=== PATIENT | female | born 1940 | race Caucasian/White ===

== ENCOUNTER 2017-04-13 18:15 | Emergency (ER) | payer MEDICARE, BC ==
[2017-04-13 18:53] VITALS: BP 139/44
[2017-04-13] MEDS ORDERED: Doxycycline 100 MG Cap ONE (19:00)
--- NOTE | 2017-04-13 20:11 | EDM.PDOC ---
ED HPI GENERAL MEDICAL PROBLEM - General Chief Complaint: Bite:Animal, Insect Stated Complaint: tick bite Time Seen by Provider: 04/13/17 18:45 Source of Information: Reports: Patient History Limitations: Reports: No Limitations - History of Present Illness INITIAL COMMENTS - FREE TEXT/NARRATIVE: According to patient she had a tick bite on friday ( 2 day ago), Rash is over the right posterior thigh.She has noticed some pain and rash around it. She claims the tick wa ,s large one. No fever or chills. No joint pain or swelling. She has been itching over the rash. Came in as the rash has spread. No other complaints. Onset Date: 04/11/17 Severity: Mild Associated Symptoms: Reports: Rash. Denies: Confusion, Chest Pain, Cough, Fever /Chills, Headaches, Nausea/Vomiting, Seizure, Shortness of Breath, Syncope, Weakness - Related Data Allergies Allergy/AdvReac Type Severity Reaction Status Date / Time No Known Allergies Allergy Verified 04/13/17 18:53 Home Meds: Home Meds Simvastatin 1 tab PO DAILY 11/09/13 [History] Aspirin [Halfprin] 1 tab PO DAILY 05/21/15 [History] Losartan/Hydrochlorothiazide [Losartan-HCTZ 100-25 MG] 1 tab PO DAILY 05/21/15 [ History] Liraglutide [Victoza] 1.8 mg SUBCUT DAILY 04/13/17 [History] Past Medical History HEENT History: Reports: Impaired Vision, Other (See Below) Other HEENT History: astigmatism Cardiovascular History: Reports: Heart Murmur, Hypertension [employer]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: Musculoskeletal History: Reports: Arthritis Endocrine/Metabolic History: Reports: Diabetes, Type II, Hyperparathyroidism - Past Surgical History HEENT Surgical History: Reports: Oral Surgery Female Surgical History: Reports: Hysterectomy, Salpingo-Oophorectomy Social & Family History - Tobacco Use Smoking Status *Q: Never Smoker Years of Tobacco use: 10 Used Tobacco, but Quit: Yes Month Tobacco Last Used: 2000 Second Hand Smoke Exposure: No - Alcohol Use Days Per Week of Alcohol Use: 0 - Recreational Drug Use Recreational Drug Use: No ED ROS GENERAL - Review of Systems Review Of Systems: See Below Constitutional: Denies: Fever, Chills HEENT: Denies: Rhinitis, Sinus Problem, Throat Pain, Throat Swelling Respiratory: Denies: Shortness of Breath, Wheezing, Cough, Sputum Cardiovascular: Denies: Chest Pain, Lightheadedness GI/Abdominal: Denies: Abdominal Pain, Flatus, Nausea, Vomiting : Denies: Dysuria, Urgency, Urinary Retention Musculoskeletal: Denies: Neck Pain, Shoulder Pain, Joint Pain, Joint Swelling Skin: Reports: Pruritis, Rash. Denies: Jaundice, Mottled, Bruising Neurological: Denies: Confusion, Dizziness, Headache, Numbness, Tingling, Difficulty Walking, Weakness ED EXAM, ANIMAL BITE - Physical Exam Exam: See Below Exam Limited By: No Limitations General Appearance: Alert, WD/WN, No Apparent Distress Eye Exam: Bilateral Eye: EOMI, PERRL Ears: Normal External Exam, Normal Canal, Hearing Grossly Normal, Normal TMs Nose: Normal Inspection, Normal Mucosa, No Blood Throat/Mouth: Normal Inspection, Normal Lips, Normal Teeth, Normal Gums, Normal Oropharynx, Normal Voice, No Airway Compromise Head: Atraumatic, Normocephalic Neck: Normal Inspection, Supple, Non-Tender, Full Range of Motion Respiratory/Chest: No Respiratory Distress, Lungs Clear, Normal Breath Sounds, No Accessory Muscle Use, Chest Non-Tender Cardiovascular: Normal Peripheral Pulses, Regular Rate, Rhythm, No Edema, No Gallop, No JVD, No Murmur, No Rub Extremities: Normal Inspection, Normal Range of Motion, Non-Tender, No Pedal Edema, Normal Capillary Refill, Other (Right thigh: There is a pinkish red rash over the posterior aspect of the thigh. Approximately 10 by cm sms. the margins are irregular. there is a central drk purple gemma with a spreading bright red margin around it with normal clearing of the skin. Appears like Bull's eye.) Neurological: Alert, Oriented, CN II-XII Intact, Normal Cognition, Normal Gait, Normal Reflexes, No Motor/Sensory Deficits Course - Vital Signs Text/Narrative:: Pt does have a typical bull's eye pattern of rash following a tick bite. It happened 2 days. ago. As the rash has typical Bull's eye pattern, I have started patient on doxycycline 100mg twice daily for 10 day empirically. Advised yogurt daily. Followup in clinic if rash worsens. Okay to take benadryl 25mg TID for itching. Last Recorded V/S: Last Vital Signs Temp 99.1 F 07/09/17 18:47 Pulse 64 04/13/17 18:47 Resp BP 139/44 L 04/13/17 18:47 Pulse Ox 99 04/13/17 18:47 Departure - Departure Time of Disposition: 19:15 Disposition: Home, Self-Care 01 Condition: Fair Clinical Impression: Tick bite - Discharge Information Instructions: Cellulitis, Adult, Doxycycline tablets or capsules Forms: ED Department Discharge Additional Instructions: Take the antibiotic twice a day with food. You may also take Benadryl 25mg three times day as well for the itching. Activa is good to take with an antibiotic as well. - Problem List & Annotations (1) Tick bite SNOMED Code(s): 35761522 Code(s): W57.XXXA - BIT/STUNG BY NONVENOM INSECT & OTH NONVENOM ARTHROPODS, INIT Status: Acute - Problem List Review Problem List Initiated/Reviewed/Updated: Yes - Assessment/Plan Assessment:: Tick bite over right thigh with Bull's eye patern Plan: Pt does have a typical bull's eye pattern of rash following a tick bite. It happened 2 days. ago. As the rash has typical Bull's eye pattern, I have started patient on doxycycline 100mg twice daily for 10 day empirically. Advised yogurt daily. Followup in clinic if rash worsens. Okay to take benadryl 25mg TID for itching.
== END 2017-04-13 19:32 | disposition home or self-care (01) ==
LOC: LB.ED 18:15
DX: S70.361A Insect bite (nonvenomous), right thigh, initial encounter (principal); Z79.82 Long term (current) use of aspirin; W57.XXXA Bitten or stung by nonvenomous insect and other nonvenomous arthropods, initial encounter
CPT/HCPCS: 99282; A9270; 99283

== ENCOUNTER 2017-04-30 14:45 | Inpatient (IN) | payer MEDICARE, BC ==
[2017-04-30] MEDS ORDERED: Dextrose 5%-0.9% NaCl 1,000 ML IV SCH (15:30)
[2017-04-30] MEDS ORDERED: Acetaminophen 500 MG Tab PO ONE (16:07)
[2017-04-30] MEDS ORDERED: Piperacillin/Tazobactam 4.5 GM in Sodium Chloride 0.9% 100 ML IV SCH (16:15)
[2017-04-30] MEDS ORDERED: Acetaminophen 325 MG Tab ONE (16:23)
[2017-04-30] MEDS ORDERED: Sodium Chloride 0.9% 10 ML Syringe FLUSH PRN (16:54)
[2017-04-30] MEDS ORDERED: Zolpidem 5 MG Tab PO PRN (16:54)
[2017-04-30] MEDS ORDERED: Ondansetron 4 MG/2 ML SDV IV PRN (16:54)
[2017-04-30] MEDS ORDERED: Acetaminophen 325 MG Tab PO PRN (16:54)
[2017-04-30] MEDS ORDERED: Ibuprofen 400 MG Tab PO PRN (16:54)
[2017-04-30] MEDS ORDERED: Docusate Sodium 100 MG Cap PO PRN (16:54)
[2017-04-30] MEDS: Dextrose 5%-0.9% NaCl with KCl 1,000 ML IV SCH (16:57)
--- NOTE | 2017-04-30 17:08 | EDM.PDOC ---
ED HPI GENERAL MEDICAL PROBLEM - General Chief Complaint: Fever Stated Complaint: fever,uti Time Seen by Provider: 04/30/17 15:03 Source of Information: Reports: Patient, Family History Limitations: Reports: Altered Mental Status - History of Present Illness INITIAL COMMENTS - FREE TEXT/NARRATIVE: This is a 76yo F here for confusion, elevated fever up to 103+, recent diagnosis of UTI yesterday, balance concerns, and slow verbal responses. Patient states she doesn't feel well. Onset: Gradual Duration: Day(s):, Getting Worse Location: Reports: Generalized Severity: Moderate Improves with: Reports: None Worsens with: Reports: None Associated Symptoms: Reports: Fever/Chills, Malaise, Weakness - Related Data Allergies Allergy/AdvReac Type Severity Reaction Status Date / Time No Known Allergies Allergy Verified 04/13/17 18:53 Home Meds: Home Meds Simvastatin 1 tab PO DAILY 11/09/13 [History] Aspirin [Halfprin] 1 tab PO DAILY 05/21/15 [History] Losartan/Hydrochlorothiazide [Losartan-HCTZ 100-25 MG] 25 - 100 mg PO DAILY [History] Liraglutide [Victoza] 1.8 mg SUBCUT DAILY 04/13/17 [History] Sulfamethoxazole/Trimethoprim [Sulfamethoxazole-Tmp Ds Tablet] 1 tab PO BID [History] Past Medical History HEENT History: Reports: Impaired Vision, Other (See Below) Other HEENT History: astigmatism Cardiovascular History: Reports: Heart Murmur, Hypertension Respiratory History: Reports: Other (See Below) Other Respiratory History: Cough x 2 wks, slightly productive, clear Gastrointestinal History: Reports: Diverticulosis, Other (See Below) Other Gastrointestinal History: sometimes incontinence when diarrhea or loose Genitourinary History: Reports: Urinary Incontinence, Other (See Below) Other Genitourinary History: presently with UTI [employer] History: Reports: Musculoskeletal History: Reports: Arthritis Endocrine/Metabolic History: Reports: Diabetes, Type II, Hypothyroidism Other Endocrine/Metabolic History: Hx hyperthyroidism but treated with iodine and now hypo Immunologic History: Reports: None Dermatologic History: Reports: Other (See Below) Other Dermatologic History: 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 - Infectious Disease History Infectious Disease History: Reports: C-Difficile, Measles - Past Surgical History HEENT Surgical History: Reports: Oral Surgery GI Surgical History: Reports: Cholecystectomy, Colonoscopy Female Surgical History: Reports: Hysterectomy, Salpingo-Oophorectomy Social & Family History - Family History Family Medical History: Noncontributory - Tobacco Use Smoking Status *Q: Never Smoker Years of Tobacco use: 10 Used Tobacco, but Quit: Yes Month Tobacco Last Used: 2000 Second Hand Smoke Exposure: No - Caffeine Use Caffeine Use: Reports: Coffee, Tea - Alcohol Use Days Per Week of Alcohol Use: 0 - Recreational Drug Use Recreational Drug Use: No ED ROS GENERAL - Review of Systems Review Of Systems: ROS reveals no pertinent complaints other than HPI. ED EXAM, SEPSIS - Physical Exam Exam: See Below Exam Limited By: No Limitations General Appearance: Alert, WD/WN, Moderate Distress Eye Exam: Bilateral Eye: EOMI, PERRL Ears: Normal External Exam Nose: Normal Inspection Throat/Mouth: Normal Inspection Head: Atraumatic, Normocephalic Neck: Normal Inspection Respiratory/Chest: No Respiratory Distress, Lungs Clear, Normal Breath Sounds Cardiovascular: Normal Peripheral Pulses, Regular Rate, Rhythm, No Edema Peripheral Pulses: 2+: Dorsalis Pedis (L), Dorsalis Pedis (R) GI/Abdominal Exam: Normal Bowel Sounds Back: Normal Inspection Extremities: Normal Inspection Neurological: Alert, Oriented, Slow to Respond Psychiatric: Normal Affect, Normal Mood Skin: Warm, Dry, Intact Course - Vital Signs Last Recorded V/S: Last Vital Signs Temp 39.0 C H 04/30/17 17:08 Pulse 98 04/30/17 15:05 Resp 32 H 04/30/17 15:05 BP 125/54 L 04/30/17 16:05 Pulse Ox 95 04/30/17 15:05 - Orders/Labs/Meds Orders: Active Orders 24 hr Category Date Time Status Patient Status [ADT] Routine ADT 04/30/17 16:54 Ordered Ambulate [RC] PER UNIT ROUTINE Care 04/30/17 16:56 Ordered Cardiac Monitoring [RC] CONTINUOUS Care 04/30/17 16:56 Ordered EKG Documentation Completion [RC] ASDIRECTED Care 04/30/17 15:15 Active Oxygen Therapy [RC] PRN Care 04/30/17 16:54 Ordered Up With Assistance [RC] ASDIRECTED Care 04/30/17 16:54 Ordered VTE/DVT Education [RC] Per Unit Routine Care 04/30/17 16:54 Ordered Vital Signs [RC] Q4H Care 04/30/17 16:54 Ordered Regular Diet [DIET] Diet 04/30/17 Dinner Ordered Chest 1V Frontal [CR] Stat Exams 04/30/17 15:32 Taken BASIC METABOLIC PANEL,BMP [CHEM] AM Lab 05/01/17 05:11 Ordered CBC WITH AUTO DIFF [HEME] AM Lab 05/01/17 05:11 Ordered CULTURE BLOOD [BC] Stat Lab 04/30/17 15:29 Ordered CULTURE BLOOD [BC] Stat Lab 04/30/17 15:40 Received MAGNESIUM [CHEM] AM Lab 05/01/17 05:11 Ordered Acetaminophen [Tylenol] Med 04/30/17 16:54 Ordered 650 mg PO Q4H PRN Dextrose 5%-0.9% NaCl [Dextrose 5%-Normal Saline] 1,000 Med 04/30/17 15:30 Active ml IV ASDIRECTED Dextrose 5%-Normal Saline with KCl 20 mEq @ 150 mL/Hr ( Med 04/30/17 16:45 Ordered 1000 mL) Dextrose 5%-0.9% NaCl with KCl [D5 NS with 20 mEq KCl] 1,000 ml IV ASDIRECTED Docusate Sodium [Colace] Med 04/30/17 16:54 Ordered 100 mg PO BID PRN Ibuprofen [Motrin] Med 04/30/17 16:54 Ordered 400 mg PO Q6H PRN Ondansetron [Zofran] Med 04/30/17 16:54 Ordered 4 mg IV Q4H PRN Piperacillin/Tazobactam [Zosyn] 4.5 gm Med 04/30/17 16:15 Ordered Sodium Chloride 0.9% [Normal Saline] 100 ml IV Q6H Sodium Chloride 0.9% [Saline Flush] Med 04/30/17 16:54 Ordered 10 ml FLUSH ASDIRECTED PRN Zolpidem [Ambien] Med 04/30/17 16:54 Ordered 5 mg PO BEDTIME PRN Antiembolic Hose [OM.PC] Per Unit Routine Oth 04/30/17 16:56 Ordered Peripheral IV Insertion Adult [OM.PC] Routine Oth 04/30/17 16:54 Ordered Resuscitation Status Routine Resus Stat 04/30/17 16:54 Ordered Medication Orders Acetaminophen (Tylenol) 650 mg PO Q4H PRN PRN Reason: Pain (Mild 1-3)/fever Docusate Sodium (Colace) 100 mg PO BID PRN PRN Reason: Constipation Piperacillin Sod/Tazobactam (Sod 4.5 gm/ Sodium Chloride) 100 mls @ 200 mls/hr IV Q6H [facility] Last Admin: 04/30/17 16:30 Dose: 200 mls/hr Potassium Chloride/Dextrose/Sod Cl (D5 Ns With 20 Meq Kcl) 1,000 mls @ 150 mls/ hr IV ASDIRECTED [facility] Last Admin: 04/30/17 16:57 Dose: 150 mls/hr Dextrose/Sodium Chloride (Dextrose 5%-Normal Saline) 1,000 mls @ 150 mls/hr IV ASDIRECTED [facility] Last Admin: 04/30/17 15:30 Dose: 150 mls/hr Ibuprofen (Motrin) 400 mg PO Q6H PRN PRN Reason: Pain (mild 1-3) Ondansetron HCl (Zofran) 4 mg IV Q4H PRN PRN Reason: Nausea/Vomiting Sodium Chloride (Saline Flush) 10 ml FLUSH ASDIRECTED PRN PRN Reason: Keep Vein Open Zolpidem Tartrate (Ambien) 5 mg PO BEDTIME PRN PRN Reason: Sleep Labs: Laboratory Tests 04/30/17 04/30/17 04/30/17 Range/Units 15:40 15:40 15:40 WBC 13.0 H (4.0-11.0) K/uL RBC 4.69 (3.80-5.80) M/uL Hgb 13.8 (11.5-16.5) g/dL Hct 40.4 (37.0-47.0) % MCV 86 (76-96) fL MCH 29.4 (27.0-32.0) pg MCHC 34.2 (31.0-35.0) g/dL RDW 13.5 (11.0-16.0) % Plt Count 237 (150-500) K/uL MPV 10.0 (6.0-10.0) fL Neut % (Auto) 93.4 H (45.0-70.0) % Lymph % (Auto) 2.6 L (20.0-40.0) % [place] % (Auto) 3.8 (3.0-10.0) % Eos % (Auto) 0.0 L (1.0-5.0) % Baso % (Auto) 0.2 (0.0-0.5) % Neut # (Auto) 12.10 H (2.00-7.50) K/uL Lymph # (Auto) 0.34 L (1.50-4.00) K/uL [place] # (Auto) 0.49 (0.20-0.80) K/uL Eos # (Auto) 0.00 L (0.04-0.40) K/uL Baso # (Auto) 0.02 (0.02-0.10) K/uL VBG pH (7.31-7.41) Sodium 137 (136-145) mmol/L Potassium 3.1 L D (3.5-5.1) mmol/L Chloride 97 L (98-107) mmol/L Carbon Dioxide 25.8 (21.0-32.0) mmol/L Anion Gap 17.3 H (5.0-15.0) mmol/L BUN 19 (8-26) mg/dL Creatinine 1.38 H D (0.55-1.02) mg/dL Est Cr Clr Drug Dosing TNP Estimated GFR (MDRD) 37 L (>60) MLS/MIN BUN/Creatinine Ratio 13.8 (6-25) Glucose 222 H (74-100) mg/dL Lactic Acid (0.90-1.70) mmol/L Calcium 9.1 (8.5-10.1) mg/dL Total Bilirubin 0.6 D (0.0-1.0) mg/dL AST 20 (15-37) U/L ALT 26 (12-78) U/L Alkaline Phosphatase 86 (46-116) U/L Troponin I < 0.017 D (0.000-0.060) ng/mL Total Protein 8.0 (6.4-8.2) g/dL Albumin 3.6 (3.4-5.0) g/dL Globulin 4.4 H (2.2-4.2) g/dL Albumin/Globulin Ratio 0.8 (0.8-2.0) TSH, Ultra Sensitive 1.279 D (0.358-3.740) uIU/mL 04/30/17 04/30/17 Range/Units 15:40 15:40 WBC (4.0-11.0) K/uL RBC (3.80-5.80) M/uL Hgb (11.5-16.5) g/dL Hct (37.0-47.0) % MCV (76-96) fL MCH (27.0-32.0) pg MCHC (31.0-35.0) g/dL RDW (11.0-16.0) % Plt Count (150-500) K/uL MPV (6.0-10.0) fL Neut % (Auto) (45.0-70.0) % Lymph % (Auto) (20.0-40.0) % [place] % (Auto) (3.0-10.0) % Eos % (Auto) (1.0-5.0) % Baso % (Auto) (0.0-0.5) % Neut # (Auto) (2.00-7.50) K/uL Lymph # (Auto) (1.50-4.00) K/uL [place] # (Auto) (0.20-0.80) K/uL Eos # (Auto) (0.04-0.40) K/uL Baso # (Auto) (0.02-0.10) K/uL VBG pH 7.41 (7.31-7.41) Sodium (136-145) mmol/L Potassium (3.5-5.1) mmol/L Chloride (98-107) mmol/L Carbon Dioxide (21.0-32.0) mmol/L Anion Gap (5.0-15.0) mmol/L BUN (8-26) mg/dL Creatinine (0.55-1.02) mg/dL Est Cr Clr Drug Dosing Estimated GFR (MDRD) (>60) MLS/MIN BUN/Creatinine Ratio (6-25) Glucose (74-100) mg/dL Lactic Acid 3.79 H (0.90-1.70) mmol/L Calcium (8.5-10.1) mg/dL Total Bilirubin (0.0-1.0) mg/dL AST (15-37) U/L ALT (12-78) U/L Alkaline Phosphatase (46-116) U/L Troponin I (0.000-0.060) ng/mL Total Protein (6.4-8.2) g/dL Albumin (3.4-5.0) g/dL Globulin (2.2-4.2) g/dL Albumin/Globulin Ratio (0.8-2.0) TSH, Ultra Sensitive (0.358-3.740) uIU/mL Meds: Medications Generic Name Dose Route Start Last Admin Trade Name Freq PRN Reason Stop Dose Admin Acetaminophen 650 mg 04/30/17 16:54 Tylenol PO Q4H PRN Pain (Mild 1-3)/fever Docusate Sodium 100 mg 04/30/17 16:54 Colace PO BID PRN Constipation Piperacillin Sod/Tazobactam 100 mls @ 200 mls/hr 04/30/17 16:15 04/30/17 16: 30 Sod 4.5 gm/ Sodium Chloride IV 200 mls/hr Q6H JOSE Administration Potassium Chloride/Dextrose/Sod Cl 1,000 mls @ 150 mls/hr 04/30/17 16:45 16:57 D5 Ns With 20 Meq Kcl IV 150 mls/hr ASDIRECTED JOSE Administration Dextrose/Sodium Chloride 1,000 mls @ 150 mls/hr 04/30/17 15:30 04/30/17 15:30 Dextrose 5%-Normal Saline IV 150 mls/hr ASDIRECTED JOSE Administration Ibuprofen 400 mg 04/30/17 16:54 Motrin PO Q6H PRN Pain (mild 1-3) Ondansetron HCl 4 mg 04/30/17 16:54 Zofran IV Q4H PRN Nausea/Vomiting Sodium Chloride 10 ml 04/30/17 16:54 Saline Flush FLUSH ASDIRECTED PRN Keep Vein Open Zolpidem Tartrate 5 mg 04/30/17 16:54 Ambien PO BEDTIME PRN Sleep Discontinued Medications Generic Name Dose Route Start Last Admin Trade Name Freq PRN Reason Stop Dose Admin Acetaminophen 1,000 mg 04/30/17 16:07 04/30/17 16:20 Tylenol Extra Strength PO 04/30/17 16:08 1,000 mg ONETIME ONE Administration Acetaminophen Confirm 04/30/17 16:23 04/30/17 16:23 Tylenol Administered 04/30/17 16:24 Not Given Dose 975 mg .ROUTE .STK-MED ONE Departure - Departure Time of Disposition: 17:06 Disposition: Admitted As Inpatient 64 Clinical Impression: Sepsis secondary to UTI, Confusion and disorientation, Renal dysfunction, Hypokalemia, Lactic acid increased Fever Qualifiers: Fever type: unspecified Qualified Code(s): R50.9 - Fever, unspecified - Discharge Information - Problem List Review Problem List Initiated/Reviewed/Updated: Yes - My Orders Last 24 Hours: My Active Orders 04/30/17 15:15 EKG Documentation Completion [RC] ASDIRECTED 04/30/17 15:29 CULTURE BLOOD [BC] Stat 04/30/17 15:30 Dextrose 5%-0.9% NaCl [Dextrose 5%-Normal Saline] 1,000 ml IV ASDIRECTED 04/30/17 15:32 Chest 1V Frontal [CR] Stat 04/30/17 15:40 CULTURE BLOOD [BC] Stat 04/30/17 16:15 Piperacillin/Tazobactam [Zosyn] 4.5 gm Sodium Chloride 0.9% [Normal Saline] 100 ml IV Q6H 04/30/17 16:45 Dextrose 5%-Normal Saline with KCl 20 mEq @ 150 mL/Hr (1000 mL) Dextrose 5%-0.9 % NaCl with KCl [D5 NS with 20 mEq KCl] 1,000 ml IV ASDIRECTED 04/30/17 16:54 Patient Status [ADT] Routine Oxygen Therapy [RC] PRN Up With Assistance [RC] ASDIRECTED VTE/DVT Education [RC] Per Unit Routine Vital Signs [RC] Q4H Acetaminophen [Tylenol] 650 mg PO Q4H PRN Docusate Sodium [Colace] 100 mg PO BID PRN Ibuprofen [Motrin] 400 mg PO Q6H PRN Ondansetron [Zofran] 4 mg IV Q4H PRN Sodium Chloride 0.9% [Saline Flush] 10 ml FLUSH ASDIRECTED PRN Zolpidem [Ambien] 5 mg PO BEDTIME PRN Peripheral IV Insertion Adult [OM.PC] Routine Resuscitation Status Routine 04/30/17 16:56 Ambulate [RC] PER UNIT ROUTINE Cardiac Monitoring [RC] CONTINUOUS Antiembolic Hose [OM.PC] Per Unit Routine 04/30/17 Dinner Regular Diet [DIET] 05/01/17 05:11 BASIC METABOLIC PANEL,BMP [CHEM] AM CBC WITH AUTO DIFF [HEME] AM MAGNESIUM [CHEM] AM - Assessment/Plan Last 24 Hours: My Active Orders 04/30/17 15:15 EKG Documentation Completion [RC] ASDIRECTED 04/30/17 15:29 CULTURE BLOOD [BC] Stat 04/30/17 15:30 Dextrose 5%-0.9% NaCl [Dextrose 5%-Normal Saline] 1,000 ml IV ASDIRECTED 04/30/17 15:32 Chest 1V Frontal [CR] Stat 04/30/17 15:40 CULTURE BLOOD [BC] Stat 04/30/17 16:15 Piperacillin/Tazobactam [Zosyn] 4.5 gm Sodium Chloride 0.9% [Normal Saline] 100 ml IV Q6H 04/30/17 16:45 Dextrose 5%-Normal Saline with KCl 20 mEq @ 150 mL/Hr (1000 mL) Dextrose 5%-0.9 % NaCl with KCl [D5 NS with 20 mEq KCl] 1,000 ml IV ASDIRECTED 04/30/17 16:54 Patient Status [ADT] Routine Oxygen Therapy [RC] PRN Up With Assistance [RC] ASDIRECTED VTE/DVT Education [RC] Per Unit Routine Vital Signs [RC] Q4H Acetaminophen [Tylenol] 650 mg PO Q4H PRN Docusate Sodium [Colace] 100 mg PO BID PRN Ibuprofen [Motrin] 400 mg PO Q6H PRN Ondansetron [Zofran] 4 mg IV Q4H PRN Sodium Chloride 0.9% [Saline Flush] 10 ml FLUSH ASDIRECTED PRN Zolpidem [Ambien] 5 mg PO BEDTIME PRN Peripheral IV Insertion Adult [OM.PC] Routine Resuscitation Status Routine 04/30/17 16:56 Ambulate [RC] PER UNIT ROUTINE Cardiac Monitoring [RC] CONTINUOUS Antiembolic Hose [OM.PC] Per Unit Routine 04/30/17 Dinner Regular Diet [DIET] 05/01/17 05:11 BASIC METABOLIC PANEL,BMP [CHEM] AM CBC WITH AUTO DIFF [HEME] AM MAGNESIUM [CHEM] AM Plan: Patient counseled on admission for antibiotics and fluid hydration. Discussed labs in the AM and continued supportive care. We will monitor sepsis until resolution.
--- NOTE | 2017-04-30 19:39 | CR ---
DATE OF SERVICE: 04/30/17 CLINICAL DATA: Cough AP CHEST: Comparison is made to a prior exam dated 05/18/15. The heart size is normal. The aorta is ectatic. There is eventration of the right hemidiaphragm. The lungs are clear. No pneumothorax. No pleural effusions. No significant changes from the prior exam. IMPRESSION: No evidence of acute intrathoracic disease. [id number] [facility]
[2017-04-30] MEDS: Simvastatin 20 MG Tab PO SCH (19:56)
[2017-04-30] MEDS: Piperacillin/Tazobactam 4.5 GM in Sodium Chloride 0.9% 100 ML IV SCH (22:19)
[2017-05-01] MEDS: Dextrose 5%-0.9% NaCl with KCl 1,000 ML IV SCH ×3 (00:09→17:27)
[2017-05-01] MEDS ORDERED: Menthol/Zinc Oxide Ointment 113 GM Tube TOP PRN (04:01)
[2017-05-01] MEDS: Piperacillin/Tazobactam 4.5 GM in Sodium Chloride 0.9% 100 ML IV SCH ×3 (04:32→20:49)
[2017-05-01] MEDS ORDERED: Levothyroxine 50 MCG Tab ONE (07:15)
[2017-05-01] MEDS: Levothyroxine 50 MCG Tab PO SCH (07:26)
--- NOTE | 2017-05-01 08:01 | PCM.PN ---
- General Info Date of Service: 05/01/17 Functional Status: Reports: Pain Controlled, Tolerating Diet - Review of Systems General: Reports: Weakness HEENT: Reports: No Symptoms Pulmonary: Reports: No Symptoms Cardiovascular: Reports: No Symptoms Gastrointestinal: Reports: No Symptoms Genitourinary: Reports: No Symptoms Musculoskeletal: Reports: No Symptoms Skin: Reports: No Symptoms Neurological: Reports: No Symptoms Psychiatric: Reports: No Symptoms - Patient Data Vitals - Most Recent: Last Vital Signs Temp 37.7 C 05/01/17 05:00 Pulse 71 05/01/17 05:00 Resp 18 05/01/17 05:00 BP 119/46 L 05/01/17 05:00 Pulse Ox 96 05/01/17 05:00 Weight - Most Recent: 69.003 kg I&O - Last 24 Hours: Intake & Output 04/30/17 05/01/17 05/01/17 22:59 06:59 14:59 Intake Total 360 2350 Output Total 1775 Balance 360 575 Med Orders - Current: Current Medications Acetaminophen (Tylenol) 650 mg PO Q4H PRN PRN Reason: Pain (Mild 1-3)/fever Last Admin: 05/01/17 05:49 Dose: 650 mg Aspirin (Halfprin) 81 mg PO DAILY [facility] Calamine/Phenol (Calmoseptine) 1 gm TOP QID PRN PRN Reason: Wound Care Docusate Sodium (Colace) 100 mg PO BID PRN PRN Reason: Constipation Hydrochlorothiazide (Hydrochlorothiazide) 25 mg PO DAILY [facility] Potassium Chloride/Dextrose/Sod Cl (D5 Ns With 20 Meq Kcl) 1,000 mls @ 150 mls/ hr IV ASDIRECTED [facility] Last Admin: 05/01/17 00:09 Dose: 150 mls/hr Dextrose/Sodium Chloride (Dextrose 5%-Normal Saline) 1,000 mls @ 150 mls/hr IV ASDIRECTED [facility] Last Admin: 04/30/17 15:30 Dose: 150 mls/hr Piperacillin Sod/Tazobactam (Sod 4.5 gm/ Sodium Chloride) 100 mls @ 200 mls/hr IV Q6H [facility] Last Admin: 05/01/17 04:32 Dose: 200 mls/hr Ibuprofen (Motrin) 400 mg PO Q6H PRN PRN Reason: Pain (mild 1-3) Levothyroxine Sodium (Synthroid) 50 mcg PO ACBREAKFAST [facility] Last Admin: 05/01/17 07:26 Dose: 50 mcg Losartan Potassium (Cozaar) 100 mg PO DAILY [facility] Non-Formulary Medication (Liraglutide [Victoza]) 1.8 mg SUBCUT DAILY [facility] Ondansetron HCl (Zofran) 4 mg IV Q4H PRN PRN Reason: Nausea/Vomiting Simvastatin (Zocor) 20 mg PO BEDTIME [facility] Last Admin: 04/30/17 19:56 Dose: 20 mg Sodium Chloride (Saline Flush) 10 ml FLUSH ASDIRECTED PRN PRN Reason: Keep Vein Open Zolpidem Tartrate (Ambien) 5 mg PO BEDTIME PRN PRN Reason: Sleep Discontinued Medications Acetaminophen (Tylenol Extra Strength) 1,000 mg PO ONETIME ONE Stop: 04/30/17 16:08 Last Admin: 04/30/17 16:20 Dose: 1,000 mg Acetaminophen (Tylenol) Confirm Administered Dose 975 mg .ROUTE .STK-MED ONE Stop: 04/30/17 16:24 Last Admin: 04/30/17 16:23 Dose: Not Given Piperacillin Sod/Tazobactam (Sod 4.5 gm/ Sodium Chloride) 100 mls @ 200 mls/hr IV Q6H [facility] Last Admin: 04/30/17 16:30 Dose: 200 mls/hr Levothyroxine Sodium (Synthroid) Confirm Administered Dose 50 mcg .ROUTE .STK- MED ONE Stop: 05/01/17 07:16 Last Admin: 05/01/17 07:19 Dose: Not Given - Exam General: Alert, Oriented, Cooperative HEENT: Pupils Equal, Pupils Reactive, EOMI Neck: Supple Lungs: Clear to Auscultation, Normal Respiratory Effort Cardiovascular: Regular Rate, Regular Rhythm GI/Abdominal Exam: Normal Bowel Sounds, Soft, Non-Tender Extremities: Normal Inspection Peripheral Pulses: 2+: Dorsalis Pedis (L), Dorsalis Pedis (R) Skin: Warm, Dry, Intact Psy/Mental Status: Alert, Normal Affect, Normal Mood - Problem List & Annotations (1) Confusion and disorientation SNOMED Code(s): 30278813, 29820592 Code(s): F99 - MENTAL DISORDER, NOT OTHERWISE SPECIFIED Status: Acute Current Visit: Yes (2) Fever SNOMED Code(s): 876098228 Code(s): R50.9 - FEVER, UNSPECIFIED Status: Acute Current Visit: Yes Qualifiers: Fever type: unspecified Qualified Code(s): R50.9 - Fever, unspecified (3) Hypokalemia SNOMED Code(s): 57792204 Code(s): E87.6 - HYPOKALEMIA Status: Acute Current Visit: Yes (4) Lactic acid increased SNOMED Code(s): 03438792 Code(s): E87.2 - ACIDOSIS Status: Acute Current Visit: Yes (5) Renal dysfunction Status: Acute Current Visit: Yes (6) Sepsis secondary to UTI SNOMED Code(s): 184781063 Code(s): A41.9 - SEPSIS, UNSPECIFIED ORGANISM; N39.0 - URINARY TRACT INFECTION, SITE NOT SPECIFIED Status: Acute Current Visit: Yes (7) Cdiff, Clostridium difficile colitis SNOMED Code(s): 263787769 Code(s): A04.7 - ENTEROCOLITIS DUE TO CLOSTRIDIUM DIFFICILE Status: Acute Priority: Medium Current Visit: No Onset Date: 11/10/13 - Problem List Review Problem List Initiated/Reviewed/Updated: Yes - My Orders Last 24 Hours: My Active Orders 04/30/17 19:01 Cardiac Monitoring [RC] 06,18 04/30/17 19:28 CLOSTRIDIUM DIFFICILE BY PCR [] Routine CULTURE MRSA SURVEY [] Routine 04/30/17 20:00 Simvastatin [Zocor] 20 mg PO BEDTIME 04/30/17 21:01 POC Glucose [Blood Glucose Check, Bedside] [RC] 0804/30/17 22:00 Piperacillin/Tazobactam [Zosyn] 4.5 gm Sodium Chloride 0.9% [Normal Saline] 100 ml IV Q6H 04/30/17 Breakfast Consistent Carbohydrate Diet [DIET] 05/01/17 04:01 Menthol/Zinc Oxide [Calmoseptine] 1 gm TOP QID PRN 05/01/17 07:30 Levothyroxine [Synthroid] 50 mcg PO ACBREAKFAST 05/01/17 08:00 Aspirin [Halfprin] 81 mg PO DAILY Hydrochlorothiazide 25 mg PO DAILY Liraglutide [Victoza] 1.8 mg SUBCUT DAILY Losartan [Cozaar] 100 mg PO DAILY - Plan Plan:: 05/01 800 Pending C. Diff results. Labs pending. We will continue to monitor for sepsis. Resolution in fever and confusion at this time. Continue antibiotics. Start loperamide. F/u labs. Continue fluid hydration.
[2017-05-01] MEDS: Losartan 50 MG Tab PO SCH (09:03)
[2017-05-01] MEDS: Aspirin 81 MG Tab.EC PO SCH (09:05)
[2017-05-01] MEDS: Non-Formulary Medication 1 Each (Liraglutide [Victoza] 1.8 MG) SUBCUT SCH (09:05)
[2017-05-01] MEDS: Hydrochlorothiazide 25 MG Tab PO SCH (09:05)
[2017-05-01] MEDS: Magnesium Oxide 400 MG Tab PO SCH (09:10)
[2017-05-01] MEDS ORDERED: Piperacillin/Tazobactam 4.5 GM in Sodium Chloride 0.9% 100 ML IV SCH (16:00)
[2017-05-01] MEDS: Simvastatin 20 MG Tab PO SCH (20:50)
[2017-05-02] MEDS: Dextrose 5%-0.9% NaCl with KCl 1,000 ML IV SCH (00:21)
[2017-05-02] MEDS: Levothyroxine 50 MCG Tab PO SCH (06:20)
[2017-05-02] MEDS: Aspirin 81 MG Tab.EC PO SCH (08:25)
[2017-05-02] MEDS: Losartan 50 MG Tab PO SCH (08:25)
[2017-05-02] MEDS: Magnesium Oxide 400 MG Tab PO SCH (08:26)
[2017-05-02] MEDS: Hydrochlorothiazide 25 MG Tab PO SCH (08:26)
[2017-05-02] MEDS: Non-Formulary Medication 1 Each (Liraglutide [Victoza] 1.8 MG) SUBCUT SCH ×2 (09:10→09:32)
--- NOTE | 2017-05-02 10:38 | PCM.PN ---
- General Info Date of Service: 05/02/17 Functional Status: Reports: Tolerating Diet - Review of Systems General: Reports: Weakness HEENT: Reports: No Symptoms Pulmonary: Reports: No Symptoms Cardiovascular: Reports: No Symptoms Gastrointestinal: Reports: Diarrhea Genitourinary: Reports: No Symptoms Musculoskeletal: Reports: No Symptoms Skin: Reports: No Symptoms Neurological: Reports: No Symptoms Psychiatric: Reports: No Symptoms - Patient Data Vitals - Most Recent: Last Vital Signs Temp 36.6 C 05/02/17 08:00 Pulse 58 L 05/02/17 08:00 Resp 16 05/02/17 08:00 BP 139/56 L 05/02/17 08:25 Pulse Ox 98 05/02/17 08:00 Weight - Most Recent: 157.6 kg I&O - Last 24 Hours: Intake & Output 05/01/17 05/02/17 05/02/17 22:59 06:59 14:59 Intake Total 1675 460 Output Total 750 Balance 1675 -290 Lab Results Last 24 Hours: Laboratory Results - last 24 hr 05/01/17 05/02/17 05/02/17 Range/Units 19:54 07:30 07:30 WBC 5.4 D (4.0-11.0) K/uL RBC 4.10 (3.80-5.80) M/uL Hgb 12.1 (11.5-16.5) g/dL Hct 36.2 L (37.0-47.0) % MCV 88 (76-96) fL MCH 29.5 (27.0-32.0) pg MCHC 33.4 (31.0-35.0) g/dL RDW 13.8 (11.0-16.0) % Plt Count 211 (150-500) K/uL MPV 9.9 (6.0-10.0) fL Neut % (Auto) 49.7 (45.0-70.0) % Lymph % (Auto) 35.8 (20.0-40.0) % [place] % (Auto) 8.9 (3.0-10.0) % Eos % (Auto) 5.2 H (1.0-5.0) % Baso % (Auto) 0.4 (0.0-0.5) % Neut # (Auto) 2.68 (2.00-7.50) K/uL Lymph # (Auto) 1.93 (1.50-4.00) K/uL [place] # (Auto) 0.48 (0.20-0.80) K/uL Eos # (Auto) 0.28 (0.04-0.40) K/uL Baso # (Auto) 0.02 (0.02-0.10) K/uL Sodium 146 H (136-145) mmol/L Potassium 4.0 (3.5-5.1) mmol/L Chloride 112 H (98-107) mmol/L Carbon Dioxide 26.0 (21.0-32.0) mmol/L Anion Gap 12.0 (5.0-15.0) mmol/L BUN 6 L D (8-26) mg/dL Creatinine 0.90 (0.55-1.02) mg/dL Est Cr Clr Drug Dosing 42.60 mL/min Estimated GFR (MDRD) > 60 (>60) MLS/MIN BUN/Creatinine Ratio 6.7 (6-25) Glucose 218 H (74-100) mg/dL POC Glucose 244 H (74-110) mg/dL Calcium 8.4 L (8.5-10.1) mg/dL Sammy Results Last 24 Hours: Microbiology 04/30/17 19:28 Clostridium difficile (PCR) - Final Stool / Feces NEGATIVE CDIFF TOXIN Med Orders - Current: Current Medications Acetaminophen (Tylenol) 650 mg PO Q4H PRN PRN Reason: Pain (Mild 1-3)/fever Last Admin: 05/01/17 05:49 Dose: 650 mg Aspirin (Halfprin) 81 mg PO DAILY [facility] Last Admin: 05/02/17 08:25 Dose: 81 mg Calamine/Phenol (Calmoseptine) 1 gm TOP QID PRN PRN Reason: Wound Care Docusate Sodium (Colace) 100 mg PO BID PRN PRN Reason: Constipation Hydrochlorothiazide (Hydrochlorothiazide) 25 mg PO DAILY [facility] Last Admin: 05/02/17 08:26 Dose: 25 mg Piperacillin Sod/Tazobactam (Sod 4,500 mg/ Sodium Chloride) 100 mls @ 200 mls/ hr IV Q6H [facility] Last Admin: 05/02/17 04:08 Dose: 200 mls/hr Sodium Chloride (Sodium Chloride 0.45%) 1,000 mls @ 0 mls/hr IV ASDIRECTED [facility] PRN Reason: KVO Ibuprofen (Motrin) 400 mg PO Q6H PRN PRN Reason: Pain (mild 1-3) Lactobacillus Acidophilus (Acidolphilus Extra Strength) 1 tab PO DAILY@1200 [facility] Levothyroxine Sodium (Synthroid) 50 mcg PO ACBREAKFAST [facility] Last Admin: 05/02/17 06:20 Dose: 50 mcg Losartan Potassium (Cozaar) 100 mg PO DAILY [facility] Last Admin: 05/02/17 08:25 Dose: 100 mg Magnesium Oxide (Magnesium Oxide) 400 mg PO DAILY [facility] Last Admin: 05/02/17 08:26 Dose: 400 mg Non-Formulary Medication (Liraglutide [Victoza]) 1.8 mg SUBCUT DAILY [facility] Last Admin: 05/02/17 09:32 Dose: 1.8 mg Ondansetron HCl (Zofran) 4 mg IV Q4H PRN PRN Reason: Nausea/Vomiting Simvastatin (Zocor) 20 mg PO BEDTIME [facility] Last Admin: 05/01/17 20:50 Dose: 20 mg Sodium Chloride (Saline Flush) 10 ml FLUSH ASDIRECTED PRN PRN Reason: Keep Vein Open Zolpidem Tartrate (Ambien) 5 mg PO BEDTIME PRN PRN Reason: Sleep Discontinued Medications Acetaminophen (Tylenol Extra Strength) 1,000 mg PO ONETIME ONE Stop: 04/30/17 16:08 Last Admin: 04/30/17 16:20 Dose: 1,000 mg Acetaminophen (Tylenol) Confirm Administered Dose 975 mg .ROUTE .STK-MED ONE Stop: 04/30/17 16:24 Last Admin: 04/30/17 16:23 Dose: Not Given Piperacillin Sod/Tazobactam (Sod 4.5 gm/ Sodium Chloride) 100 mls @ 200 mls/hr IV Q6H [facility] Last Admin: 04/30/17 16:30 Dose: 200 mls/hr Potassium Chloride/Dextrose/Sod Cl (D5 Ns With 20 Meq Kcl) 1,000 mls @ 150 mls/ hr IV ASDIRECTED [facility] Last Admin: 05/02/17 00:21 Dose: 150 mls/hr Dextrose/Sodium Chloride (Dextrose 5%-Normal Saline) 1,000 mls @ 150 mls/hr IV ASDIRECTED [facility] Last Admin: 04/30/17 15:30 Dose: 150 mls/hr Piperacillin Sod/Tazobactam (Sod 4.5 gm/ Sodium Chloride) 100 mls @ 200 mls/hr IV Q6H [facility] Last Admin: 05/01/17 20:49 Dose: Not Given Piperacillin Sod/Tazobactam (Sod 4.5 gm/ Sodium Chloride) 100 mls @ 200 mls/hr IV Q6H [facility] Last Admin: 05/01/17 20:49 Dose: Not Given Levothyroxine Sodium (Synthroid) Confirm Administered Dose 50 mcg .ROUTE .STK- MED ONE Stop: 05/01/17 07:16 Last Admin: 05/01/17 07:19 Dose: Not Given - Exam General: Alert, Oriented, Cooperative HEENT: Pupils Equal, Pupils Reactive, EOMI Neck: Supple Lungs: Clear to Auscultation, Normal Respiratory Effort Cardiovascular: Regular Rate, Regular Rhythm GI/Abdominal Exam: Abnormal Bowel Sounds Extremities: Normal Inspection Skin: Warm, Dry, Intact Neurological: No New Focal Deficit Psy/Mental Status: Alert, Normal Affect, Normal Mood - Problem List & Annotations (1) Confusion and disorientation SNOMED Code(s): 08956823, 17575832 Code(s): F99 - MENTAL DISORDER, NOT OTHERWISE SPECIFIED Status: Acute Current Visit: Yes (2) Fever SNOMED Code(s): 572419998 Code(s): R50.9 - FEVER, UNSPECIFIED Status: Acute Current Visit: Yes Qualifiers: Fever type: unspecified Qualified Code(s): R50.9 - Fever, unspecified (3) Hypokalemia SNOMED Code(s): 02160531 Code(s): E87.6 - HYPOKALEMIA Status: Acute Current Visit: Yes (4) Lactic acid increased SNOMED Code(s): 93893194 Code(s): E87.2 - ACIDOSIS Status: Acute Current Visit: Yes (5) Renal dysfunction Status: Acute Current Visit: Yes (6) Sepsis secondary to UTI SNOMED Code(s): 141488437 Code(s): A41.9 - SEPSIS, UNSPECIFIED ORGANISM; N39.0 - URINARY TRACT INFECTION, SITE NOT SPECIFIED Status: Acute Current Visit: Yes (7) Cdiff, Clostridium difficile colitis SNOMED Code(s): 862344518 Code(s): A04.7 - ENTEROCOLITIS DUE TO CLOSTRIDIUM DIFFICILE Status: Acute Priority: Medium Current Visit: No Onset Date: 11/10/13 - Problem List Review Problem List Initiated/Reviewed/Updated: Yes - My Orders Last 24 Hours: My Active Orders 05/01/17 10:30 GI BACTERIAL PCR PANEL Routine 05/01/17 16:15 Piperacillin/Tazobactam [Zosyn] 4,500 mg Sodium Chloride 0.9% [Normal Saline] 100 ml IV Q6H 05/01/17 19:25 Dehydrogenation Converter Operator Discontinue [Cardiac Monitoring Discontinue] [RC] Click to Edit 05/02/17 10:45 Sodium Chloride 0.45% @ KVO(1,000ml) Sodium Chloride 0.45% 1,000 ml IV ASDIRECTED 05/03/17 12:00 Acidophilus/Lactobac Spor [Acidolphilus Extra Strength] 1 tab PO DAILY@1200 - Plan Plan:: 05/01 0800 Pending C. Diff results. Labs pending. We will continue to monitor for sepsis. Resolution in fever and confusion at this time. Continue antibiotics. Start loperamide. F/u labs. Continue fluid hydration. 05/02 We will repeat C. Diff testing due to continued loose stools. Patient labs are good. WBC normalized for the past 24hours. No temp. We will f/u stool testing. Patient does not feel safe going home. We will continue antibiotics at this time as patient stools have improved from yesterday. There is a possibility the diarrhea is from antibiotics but per patient the watery stools started prior to her first dose of bactrim. She did have a course of doxycycline previously. Patient counseled on current plan of care and management.
[2017-05-02] MEDS ORDERED: Sodium Chloride 0.45% 1,000 ML IV SCH (10:45)
[2017-05-02] MEDS ORDERED: Lactobacillus Acidophilus/Lactobacillus Sporogenes (Probiotic) Tab ONE (12:04)
[2017-05-02] MEDS: Amoxicillin/Clavulanate K 875-125 MG Tab PO SCH (20:54)
[2017-05-02] MEDS: Simvastatin 20 MG Tab PO SCH (20:54)
[2017-05-03] MEDS: Levothyroxine 50 MCG Tab PO SCH (06:39)
[2017-05-03] MEDS: Aspirin 81 MG Tab.EC PO SCH (08:07)
[2017-05-03] MEDS: Losartan 50 MG Tab PO SCH (08:07)
[2017-05-03] MEDS: Amoxicillin/Clavulanate K 875-125 MG Tab PO SCH (08:07)
[2017-05-03] MEDS: Hydrochlorothiazide 25 MG Tab PO SCH (08:07)
[2017-05-03] MEDS: Magnesium Oxide 400 MG Tab PO SCH (08:07)
[2017-05-03] MEDS: Non-Formulary Medication 1 Each (Liraglutide [Victoza] 1.8 MG) SUBCUT SCH (08:07)
[2017-05-03 09:47] VITALS: BP 152/64
--- NOTE | 2017-05-03 09:51 | PCM.DCSUM1 ---
Discharge Summary - Hospital Course Free Text/Narrative:: Pt was admitted with possible sepsis. Pt was running fever of 103. She was started on zosyn Iv.During the hospital course pt did have diarrhea, which was tested for C-diff considering recent multiple use of antibiotics. C-diff was negative. Also her white count is down from 14K, to 5 K yesterday. today, patient is feeling better, has had one small semiformed soft stool. No fever or chills. Tolerating oral diet well. Her CBC today is stable. Her Magnesium level is 1.6.Clinical exam and vitals are stable. Pt is doing well, planned for discharge. Pt recently has been on DOxycycline, short course of Bactrim, IV zosyn and now on oral augmentin. I have discharge patient on no antibiotics. Advised Probiotics daily. Apples and bananas to help have formed stool. Avoid meat and mild products for 1 wk. Her magnesium level is low. will send home on magnesium oxide 400mg BID. Advised to followup with Dr. Leong next week for recheck. Brief History: Pty was admitted with high grade fever with chills, with elevated white count. Kindly see H&P for details. - Discharge Data Discharge Date: 05/03/17 Discharge Disposition: Home, Self-Care 01 Condition: Good - Patient Summary/Data Consults: Consultations 05/02/17 10:53 PT Evaluation and Treatment [CONS] Routine Please Evaluate and Treat. PT Reason for Consult: Strengthening This query below is only for informational purposes and is not editable. Admission Diagnosis/Problem: Sepsis due to urinary tract infection - Patient Instructions Diet: Regular Diet as Tolerated Fluid Restriction: 1500 mL Activity: As Tolerated Driving: May Drive Today - Discharge Plan Prescriptions/Med Rec: Magnesium Oxide 400 mg PO BID #60 tablet Home Medications: Home Meds Simvastatin 1 tab PO DAILY 11/09/13 [History] Aspirin [Halfprin] 1 tab PO DAILY 05/21/15 [History] Losartan/Hydrochlorothiazide [Losartan-HCTZ 100-25 MG] 25 - 100 mg PO DAILY [History] Liraglutide [Victoza] 1.8 mg SUBCUT DAILY 04/13/17 [History] Levothyroxine [Synthroid] 50 mcg PO ACBREAKFAST tablet 05/03/17 [Rx] Magnesium Oxide 400 mg PO BID #60 tablet 05/03/17 [Rx] Zolpidem [Ambien] 5 mg PO BEDTIME PRN #0 tablet 05/03/17 [Rx] Patient Handouts: Urinary Tract Infection, Adult Forms: ED Department Discharge Referrals: PCP,None [Primary Care Provider] - - Discharge Summary/Plan Comment DC Time >30 min.: Yes Discharge Summary/Plan Comment: Pt is doing well, planned for discharge. Pt recently has been on Doxycycline, short course of Bactrim, IV zosyn and now on oral augmentin. I have discharge patient on no antibiotics. Advised Probiotics daily. Apples and bananas to help have formed stool. Avoid meat and mild products for 1 wk. Her magnesium level is low. will send home on magnesium oxide 400mg BID. Advised to followup with Dr. Leong next week for recheck. - General Info Functional Status: Reports: Pain Controlled, Tolerating Diet, Ambulating, Urinating - Review of Systems General: Denies: Fever, Weakness, Fatigue HEENT: Denies: Sinus Congestion, Sore Throat, Visual Changes Pulmonary: Denies: Shortness of Breath, Sputum, Hemoptysis Cardiovascular: Denies: Chest Pain, Palpitations Gastrointestinal: Denies: Abdominal Pain, Diarrhea, Flatus, Nausea, Vomiting Genitourinary: Denies: Dysuria, Frequency Musculoskeletal: Denies: Joint Pain, Joint Swelling Skin: Denies: Cyanosis, Jaundice, Pruritis, Rash Neurological: Denies: Confusion, Dizziness, Headache Psychiatric: Denies: Confusion, Depression - Patient Data Vitals - Most Recent: Last Vital Signs Temp 97 F 05/02/17 20:00 Pulse 54 L 05/02/17 20:00 Resp 18 05/02/17 20:00 BP 148/57 H 05/02/17 20:00 Pulse Ox 96 05/02/17 16:00 Weight - Most Recent: 157.6 kg Lab Results - Last 24 hrs: Laboratory Results - last 24 hr 05/02/17 05/03/17 05/03/17 Range/Units 20:18 07:00 08:42 WBC 6.4 (4.0-11.0) K/uL RBC 4.40 (3.80-5.80) M/uL Hgb 13.0 (11.5-16.5) g/dL Hct 38.3 (37.0-47.0) % MCV 87 (76-96) fL MCH 29.5 (27.0-32.0) pg MCHC 33.9 (31.0-35.0) g/dL RDW 13.6 (11.0-16.0) % Plt Count 228 (150-500) K/uL MPV 9.7 (6.0-10.0) fL Neut % (Auto) 52.9 (45.0-70.0) % Lymph % (Auto) 32.7 (20.0-40.0) % [place] % (Auto) 8.6 (3.0-10.0) % Eos % (Auto) 5.3 H (1.0-5.0) % Baso % (Auto) 0.5 (0.0-0.5) % Neut # (Auto) 3.37 (2.00-7.50) K/uL Lymph # (Auto) 2.08 (1.50-4.00) K/uL [place] # (Auto) 0.55 (0.20-0.80) K/uL Eos # (Auto) 0.34 (0.04-0.40) K/uL Baso # (Auto) 0.03 (0.02-0.10) K/uL Sodium (136-145) mmol/L Potassium (3.5-5.1) mmol/L Chloride (98-107) mmol/L Carbon Dioxide (21.0-32.0) mmol/L Anion Gap (5.0-15.0) mmol/L BUN (8-26) mg/dL Creatinine (0.55-1.02) mg/dL Est Cr Clr Drug Dosing mL/min Estimated GFR (MDRD) (>60) MLS/MIN BUN/Creatinine Ratio (6-25) Glucose (74-100) mg/dL POC Glucose 153 H 167 H (74-110) mg/dL Calcium (8.5-10.1) mg/dL Magnesium (1.8-2.4) mg/dL 05/03/17 Range/Units 08:42 WBC (4.0-11.0) K/uL RBC (3.80-5.80) M/uL Hgb (11.5-16.5) g/dL Hct (37.0-47.0) % MCV (76-96) fL MCH (27.0-32.0) pg MCHC (31.0-35.0) g/dL RDW (11.0-16.0) % Plt Count (150-500) K/uL MPV (6.0-10.0) fL Neut % (Auto) (45.0-70.0) % Lymph % (Auto) (20.0-40.0) % [place] % (Auto) (3.0-10.0) % Eos % (Auto) (1.0-5.0) % Baso % (Auto) (0.0-0.5) % Neut # (Auto) (2.00-7.50) K/uL Lymph # (Auto) (1.50-4.00) K/uL [place] # (Auto) (0.20-0.80) K/uL Eos # (Auto) (0.04-0.40) K/uL Baso # (Auto) (0.02-0.10) K/uL Sodium 143 (136-145) mmol/L Potassium 3.9 (3.5-5.1) mmol/L Chloride 107 (98-107) mmol/L Carbon Dioxide 28.4 (21.0-32.0) mmol/L Anion Gap 11.5 (5.0-15.0) mmol/L BUN 8 D (8-26) mg/dL Creatinine 0.89 (0.55-1.02) mg/dL Est Cr Clr Drug Dosing 43.08 mL/min Estimated GFR (MDRD) > 60 (>60) MLS/MIN BUN/Creatinine Ratio 9.0 (6-25) Glucose 182 H (74-100) mg/dL POC Glucose (74-110) mg/dL Calcium 9.1 (8.5-10.1) mg/dL Magnesium 1.6 L (1.8-2.4) mg/dL Med Orders - Current: Current Medications Acetaminophen (Tylenol) 650 mg PO Q4H PRN PRN Reason: Pain (Mild 1-3)/fever Last Admin: 05/01/17 05:49 Dose: 650 mg Amoxicillin/Clavulanate Potassium (Augmentin 875 Mg/125 Mg) 1 tab PO Q12HR [facility] Last Admin: 05/03/17 08:07 Dose: 1 tab Aspirin (Halfprin) 81 mg PO DAILY [facility] Last Admin: 05/03/17 08:07 Dose: 81 mg Calamine/Phenol (Calmoseptine) 1 gm TOP QID PRN PRN Reason: Wound Care Docusate Sodium (Colace) 100 mg PO BID PRN PRN Reason: Constipation Hydrochlorothiazide (Hydrochlorothiazide) 25 mg PO DAILY [facility] Last Admin: 05/03/17 08:07 Dose: 25 mg Ibuprofen (Motrin) 400 mg PO Q6H PRN PRN Reason: Pain (mild 1-3) Lactobacillus Acidophilus (Acidolphilus Extra Strength) 1 tab PO DAILY@1200 [facility] Levothyroxine Sodium (Synthroid) 50 mcg PO ACBREAKFAST [facility] Last Admin: 05/03/17 06:39 Dose: 50 mcg Losartan Potassium (Cozaar) 100 mg PO DAILY [facility] Last Admin: 05/03/17 08:07 Dose: 100 mg Magnesium Oxide (Magnesium Oxide) 400 mg PO DAILY [facility] Last Admin: 05/03/17 08:07 Dose: 400 mg Non-Formulary Medication (Liraglutide [Victoza]) 1.8 mg SUBCUT DAILY [facility] Last Admin: 05/03/17 08:07 Dose: 1.8 mg Ondansetron HCl (Zofran) 4 mg IV Q4H PRN PRN Reason: Nausea/Vomiting Simvastatin (Zocor) 20 mg PO BEDTIME [facility] Last Admin: 05/02/17 20:54 Dose: 20 mg Zolpidem Tartrate (Ambien) 5 mg PO BEDTIME PRN PRN Reason: Sleep Discontinued Medications Acetaminophen (Tylenol Extra Strength) 1,000 mg PO ONETIME ONE Stop: 04/30/17 16:08 Last Admin: 04/30/17 16:20 Dose: 1,000 mg Acetaminophen (Tylenol) Confirm Administered Dose 975 mg .ROUTE .STK-MED ONE Stop: 04/30/17 16:24 Last Admin: 04/30/17 16:23 Dose: Not Given Piperacillin Sod/Tazobactam (Sod 4.5 gm/ Sodium Chloride) 100 mls @ 200 mls/hr IV Q6H [facility] Last Admin: 04/30/17 16:30 Dose: 200 mls/hr Potassium Chloride/Dextrose/Sod Cl (D5 Ns With 20 Meq Kcl) 1,000 mls @ 150 mls/ hr IV ASDIRECTED [facility] Last Admin: 05/02/17 00:21 Dose: 150 mls/hr Dextrose/Sodium Chloride (Dextrose 5%-Normal Saline) 1,000 mls @ 150 mls/hr IV ASDIRECTED [facility] Last Admin: 04/30/17 15:30 Dose: 150 mls/hr Piperacillin Sod/Tazobactam (Sod 4.5 gm/ Sodium Chloride) 100 mls @ 200 mls/hr IV Q6H [facility] Last Admin: 05/01/17 20:49 Dose: Not Given Piperacillin Sod/Tazobactam (Sod 4.5 gm/ Sodium Chloride) 100 mls @ 200 mls/hr IV Q6H [facility] Last Admin: 05/01/17 20:49 Dose: Not Given Piperacillin Sod/Tazobactam (Sod 4,500 mg/ Sodium Chloride) 100 mls @ 200 mls/ hr IV Q6H [facility] Last Admin: 05/02/17 11:11 Dose: 200 mls/hr Sodium Chloride (Sodium Chloride 0.45%) 1,000 mls @ 30 mls/hr IV ASDIRECTED [facility] PRN Reason: KVO Last Admin: 05/02/17 11:03 Dose: 30 mls/hr Lactobacillus Acidophilus (Acidolphilus Extra Strength) Confirm Administered Dose 1 tab .ROUTE .STK-MED ONE Stop: 05/02/17 12:05 Last Admin: 05/02/17 12:16 Dose: 1 tab Levothyroxine Sodium (Synthroid) Confirm Administered Dose 50 mcg .ROUTE .STK- MED ONE Stop: 05/01/17 07:16 Last Admin: 05/01/17 07:19 Dose: Not Given Sodium Chloride (Saline Flush) 10 ml FLUSH ASDIRECTED PRN PRN Reason: Keep Vein Open - Exam General: Reports: Alert, Oriented HEENT: Reports: Pupils Equal, Pupils Reactive, EOMI, Mucous Membr. Moist/[place] Neck: Reports: Supple Lungs: Reports: Clear to Auscultation, Normal Respiratory Effort Cardiovascular: Reports: Regular Rate, Regular Rhythm GI/Abdominal Exam: Normal Bowel Sounds, Soft, Non-Tender, No Organomegaly, No Distention, No Abnormal Bruit, No Mass, Pelvis Stable Extremities: Normal Inspection, Normal Range of Motion, Non-Tender, No Pedal Edema, Normal Capillary Refill Skin: Reports: Warm, Dry, Intact Neurological: Reports: No New Focal Deficit Psy/Mental Status: Reports: Alert, Normal Affect, Normal Mood *Q Meaningful Use (DIS) - VTE *Q VTE Criteria *Q: - Stroke *Q Stroke Criteria *Q: - AMI *Q AMI Criteria *Q:
[2017-05-03 11:47] LABS: CAMPYLOBACTER (by PCR) Negative (NEG); SALMONELLA SPECIES (by PCR) Negative (NEG); SHIG OR ENTEROPATH ECOLI (PCR) Negative (NEG); SHIGA TOXIN PRODUC ECOLI (PCR) Negative (NEG)
[2017-05-03] MEDS ORDERED: Magnesium Oxide 400 MG Tab ONE (12:00)
[2017-05-03] MEDS ORDERED: Lactobacillus Acidophilus/Lactobacillus Sporogenes (Probiotic) Tab PO SCH (12:00)
[2017-05-03] MEDS ORDERED: Lactobacillus Acidophilus/Lactobacillus Sporogenes (Probiotic) Tab ONE (12:00)
== END 2017-05-03 12:34 | disposition home or self-care (01) | DRG 872 ==
LOC: LB.ED 14:45 → LB.MS 16:54 → UNDOADMIN 17:05 → LB.MS 17:05
PROVIDERS: ADMIT Family Medicine; ATTEND Family Medicine
DX: A41.9 Sepsis, unspecified organism (principal); N39.0 Urinary tract infection, site not specified; I10 Essential (primary) hypertension; E11.9 Type 2 diabetes mellitus without complications; E03.9 Hypothyroidism, unspecified; Z87.891 Personal history of nicotine dependence; E87.6 Hypokalemia; N28.9 Disorder of kidney and ureter, unspecified; R19.7 Diarrhea, unspecified; M19.90 Unspecified osteoarthritis, unspecified site; H54.7 Unspecified visual loss; Z79.82 Long term (current) use of aspirin
CPT/HCPCS: 36415; 71010; 80053; 82800; 83605; 84443; 84484; 85025; 87040 ×2; 93005; 96361; 96374; 99285; A9270; J2543; J7030; 80048; 82962; 83735; 87493; 87505; 97110-GP; 97161-GP; J3480; J3490

== ENCOUNTER 2019-01-02 12:12 | Emergency (ER) | payer MEDICARE, BC ==
--- NOTE | 2019-01-02 13:10 | EDM.PDOC ---
ED HPI GENERAL MEDICAL PROBLEM - General Chief Complaint: General Stated Complaint: COUGH Time Seen by Provider: 01/02/19 12:45 Source of Information: Reports: Patient History Limitations: Reports: No Limitations - History of Present Illness INITIAL COMMENTS - FREE TEXT/NARRATIVE: According to patient she has been having cough for past 3 days. Cough is productive and persistent all and night. Sputum is clear and mucoid. No wheezing or shortness of breath. Also she has been running low grade fever. She was running at temp of 101F prior to arrival. Chills on and off. No nausea or vomiting. Has been having nasal congestion an sinus drainage too. Positive bodyache and lower chest wall pain when she coughs. Onset Date: 12/30/18 Duration: Day(s): (3) Severity: Moderate Improves with: Reports: None Worsens with: Reports: None Associated Symptoms: Reports: Chest Pain, Cough, Fever/Chills, Headaches. Denies: Confusion, Diaphoresis, Loss of Appetite, Malaise, Nausea/Vomiting, Rash , Seizure, Shortness of Breath, Syncope, Weakness - Related Data Allergies Allergy/AdvReac Type Severity Reaction Status Date / Time No Known Allergies Allergy Verified 04/13/17 18:53 Home Meds: Home Meds Simvastatin 1 tab PO DAILY 11/09/13 [History] Aspirin [Halfprin] 1 tab PO DAILY 05/21/15 [History] Losartan/Hydrochlorothiazide [Losartan-HCTZ 100-25 MG] 25 - 100 mg PO DAILY [History] Liraglutide [Victoza] 1.8 mg SUBCUT DAILY 04/13/17 [History] Levothyroxine [Synthroid] 75 mcg PO ACBREAKFAST 01/02/19 [History] Past Medical History HEENT History: Reports: Impaired Vision, Other (See Below) Other HEENT History: astigmatism Cardiovascular History: Reports: Heart Murmur, Hypertension Respiratory History: Reports: Other (See Below) Other Respiratory History: Cough x 2 wks, slightly productive, clear Gastrointestinal History: Reports: Diverticulosis, Other (See Below) Other Gastrointestinal History: sometimes incontinence when diarrhea or loose Genitourinary History: Reports: Urinary Incontinence, Other (See Below) Other Genitourinary History: 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: Musculoskeletal History: Reports: Arthritis Endocrine/Metabolic History: Reports: Diabetes, Type II, Hypothyroidism Other Endocrine/Metabolic History: Hx hyperthyroidism but treated with iodine and now hypo Immunologic History: Reports: None Dermatologic History: Reports: Other (See Below) Other Dermatologic History: 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 Denies: Weakness, Fatigue HEENT: Reports: Rhinitis. Denies: Ear Pain, Eye Discharge, Throat Pain, Throat Swelling, Vision Change Respiratory: Reports: Pleuritic Chest Pain, Cough, Sputum. Denies: Shortness of Breath, Wheezing Cardiovascular: Denies: Chest Pain, Lightheadedness GI/Abdominal: Denies: Abdominal Pain, Constipation, Diarrhea, Nausea, Vomiting : Denies: Dysuria, Frequency Musculoskeletal: Denies: Joint Pain, Joint Swelling Skin: Denies: Bruising, Pruritis, Rash Neurological: Reports: No Symptoms ED EXAM, GENERAL - Physical Exam Exam: See Below Exam Limited By: No Limitations General Appearance: Alert, WD/WN, No Apparent Distress Eye Exam: Bilateral Eye: EOMI, PERRL Ears: Normal External Exam, Normal Canal, Hearing Grossly Normal, Normal TMs Ear Exam: Bilateral Ear: Auricle Normal, Canal Normal, TM normal Nose: Normal Inspection, Normal Mucosa, No Blood, Nasal Drainage (clear nasal drainage) Throat/Mouth: Normal Inspection, Normal Lips, Normal Teeth, Normal Gums, Normal Oropharynx, Normal Voice, No Airway Compromise, Other (postnasal drip noted) Head: Atraumatic Neck: Normal Inspection, Supple, Non-Tender, Full Range of Motion Respiratory/Chest: No Respiratory Distress, Lungs Clear, Normal Breath Sounds, No Accessory Muscle Use, Chest Non-Tender Cardiovascular: Normal Peripheral Pulses, Regular Rate, Rhythm, No Edema, No Gallop, No JVD, No Murmur, No Rub GI/Abdominal: Normal Bowel Sounds, Soft, Non-Tender, No Organomegaly, No Distention, No Abnormal Bruit, No Mass Extremities: Normal Inspection, Normal Range of Motion, Non-Tender, Normal Capillary Refill, No Pedal Edema Neurological: Alert Course - Vital Signs Text/Narrative:: Chest X-ray is negative. Influenza is negative. CBC appears normal. Pt reassured that she has acute allergic sinusitis with bronchitis. Advised steam inhalations 3-4 times daily. Zyrtec 10mg daily. Robitussin DM 1 tsp 4 times daily. Avoid OTC sinus medications. Fever control with Tylenol 650mg 4 times daily.. Return to emergency room if symptoms worsen.Otherwise followup in clinic. - Orders/Labs/Meds Orders: Active Orders 24 hr Category Date Time Status Chest 2V [CR] Stat Exams 01/02/19 13:03 Taken Labs: Laboratory Tests 01/02/19 Range/Units 13:18 WBC 7.8 (4.0-11.0) K/uL RBC 4.57 (3.80-5.80) M/uL Hgb 13.7 (11.5-16.5) g/dL Hct 40.6 (37.0-47.0) % MCV 89 (76-96) fL MCH 30.0 (27.0-32.0) pg MCHC 33.7 (31.0-35.0) g/dL RDW 13.3 (11.0-16.0) % Plt Count 217 (150-500) K/uL MPV 9.7 (6.0-10.0) fL Neut % (Auto) 78.1 H (45.0-70.0) % Lymph % (Auto) 11.0 L (20.0-40.0) % [place] % (Auto) 9.6 (3.0-10.0) % Eos % (Auto) 1.0 (1.0-5.0) % Baso % (Auto) 0.3 (0.0-0.5) % Neut # (Auto) 6.09 (2.00-7.50) K/uL Lymph # (Auto) 0.86 L (1.50-4.00) K/uL [place] # (Auto) 0.75 (0.20-0.80) K/uL Eos # (Auto) 0.08 (0.04-0.40) K/uL Baso # (Auto) 0.02 (0.02-0.10) K/uL Departure - Departure Time of Disposition: 14:15 Disposition: Home, Self-Care 01 Condition: Fair Clinical Impression: Viral bronchitis - Discharge Information *PRESCRIPTION DRUG MONITORING PROGRAM REVIEWED*: Not Applicable *COPY OF PRESCRIPTION DRUG MONITORING REPORT IN PATIENT YUE: Not Applicable Referrals: Becky Mckenna PA [Primary Care Provider] - Forms: ED Department Discharge - Problem List & Annotations (1) Viral bronchitis SNOMED Code(s): 16575879 Code(s): J20.8 - ACUTE BRONCHITIS DUE TO OTHER SPECIFIED ORGANISMS Status: Acute Current Visit: Yes - Problem List Review Problem List Initiated/Reviewed/Updated: Yes - My Orders Last 24 Hours: My Active Orders 01/02/19 13:03 Chest 2V [CR] Stat - Assessment/Plan Last 24 Hours: My Active Orders 01/02/19 13:03 Chest 2V [CR] Stat Assessment:: Viral bronchitis Plan: Chest X-ray is negative. Influenza is negative. CBC appears normal. Pt reassured that she has acute allergic sinusitis with bronchitis. Advised steam inhalations 3-4 times daily. Zyrtec 10mg daily. Robitussin DM 1 tsp 4 times daily. Avoid OTC sinus medications. Fever control with Tylenol 650mg 4 times daily.. Return to emergency room if symptoms worsen.Otherwise followup in clinic.
--- NOTE | 2019-01-03 19:47 | CR ---
DATE OF SERVICE: 01/02/2019 CLINICAL DATA: Cough with fever. PA AND LATERAL CHEST: No priors. The heart size is normal. There is calcification of the aortic arch. The lungs are clear. No pneumothorax. No pleural effusions. No changes from the prior exam dated 04/30/2017. No evidence of acute intrathoracic disease. [id number] MTDD
== END 2019-01-02 14:05 | disposition home or self-care (01) ==
LOC: LB.ED 12:12
DX: J20.8 Acute bronchitis due to other specified organisms (principal); B97.89 Other viral agents as the cause of diseases classified elsewhere; I10 Essential (primary) hypertension; E11.9 Type 2 diabetes mellitus without complications; E03.9 Hypothyroidism, unspecified; E05.90 Thyrotoxicosis, unspecified without thyrotoxic crisis or storm; Z79.82 Long term (current) use of aspirin; Z79.899 Other long term (current) drug therapy
CPT/HCPCS: 36415; 71046; 85025; 87804; 99283-25

== ENCOUNTER → 2019-08-24 | Outpatient (CLI) | payer MEDICARE, BC ==
[2019-08-24 09:35] LABS: HEMOGLOBIN A1C 6.9 % (< 5.7)
== END ==
LOC: LB.CLINIC 09:06
PROVIDERS: ATTEND Family Medicine
DX: I10 Essential (primary) hypertension (principal); E78.5 Hyperlipidemia, unspecified; E11.9 Type 2 diabetes mellitus without complications; E05.00 Thyrotoxicosis with diffuse goiter without thyrotoxic crisis or storm
CPT/HCPCS: 36415; 80053; 80061; 82043; 83036; 84443; 85025

== ENCOUNTER → 2019-08-26 | Outpatient (CLI) | payer MEDICARE, BC | LOC: LB.MAM 14:01 | PROVIDERS: ATTEND Family Medicine | DX: M85.811 Other specified disorders of bone density and structure, right shoulder (principal); M85.812 Other specified disorders of bone density and structure, left shoulder | CPT/HCPCS: 77080 ==

== ENCOUNTER 2020-05-24 12:49 | Emergency (ER) | payer MEDICARE, BC ==
--- NOTE | 2020-05-24 13:35 | EDM.PDOC ---
ED HPI GENERAL MEDICAL PROBLEM - General Chief Complaint: Bite:Animal, Insect Stated Complaint: CELLULITIS RT HAND FROM CAT BITE Time Seen by Provider: 05/24/20 13:15 - History of Present Illness INITIAL COMMENTS - FREE TEXT/NARRATIVE: at 2230 last night patient was bit by her house cat. Unsure if cat is UTD with vaccines as the cat only is indoor. Unsure about tetanus status. Patient did NOT clean area immediately after bite. Today developed increased redness and warmth that spreads up her arm, area of redness is 15cm x 4 cm. Minimal clear drainage noted. No fever, CP, SOB Onset Date: 05/23/20 Location: Reports: Upper Extremity, Right Quality: Reports: Ache Severity: Mild Improves with: Reports: None Worsens with: Reports: None Associated Symptoms: Reports: No Other Symptoms - Related Data Allergies Allergy/AdvReac Type Severity Reaction Status Date / Time metformin Allergy Diarrhea Verified 05/24/20 13:30 Home Meds: Home Meds Simvastatin 1 tab PO DAILY 11/09/13 [History] Aspirin [Halfprin] 1 tab PO DAILY 05/21/15 [History] Losartan/Hydrochlorothiazide [Losartan-HCTZ 100-25 MG] 25 - 100 mg PO DAILY 05/21/15 [History] Liraglutide [Victoza] 1.8 mg SUBCUT DAILY 04/13/17 [History] Levothyroxine [Synthroid] 75 mcg PO ACBREAKFAST 01/02/19 [History] Doxycycline [Vibra-Tabs] 100 mg PO Q12HR 10 Days tab 05/24/20 [Rx] Past Medical History HEENT History: Reports: Impaired Vision, Other (See Below) Other HEENT History: astigmatism Cardiovascular History: Reports: Heart Murmur, Hypertension Respiratory History: Reports: Other (See Below) Other Respiratory History: Cough x 2 wks, slightly productive, clear Gastrointestinal History: Reports: Diverticulosis, Other (See Below) Other Gastrointestinal History: sometimes incontinence when diarrhea or loose Genitourinary History: Reports: Urinary Incontinence, Other (See Below) Other Genitourinary History: 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: Musculoskeletal History: Reports: Arthritis Endocrine/Metabolic History: Reports: Diabetes, Type II, Hypothyroidism Other Endocrine/Metabolic History: Hx hyperthyroidism but treated with iodine and now hypo Immunologic History: Reports: None Dermatologic History: Reports: Other (See Below) Other Dermatologic History: 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 - Infectious Disease History Infectious Disease History: Reports: C-Difficile, Measles - Past Surgical History HEENT Surgical History: Reports: Oral Surgery GI Surgical History: Reports: Cholecystectomy, Colonoscopy Female Surgical History: Reports: Hysterectomy, Salpingo-Oophorectomy Social & Family History - Family History Family Medical History: Noncontributory - Caffeine Use Caffeine Use: Reports: Coffee, Tea ED ROS GENERAL - Review of Systems Review Of Systems: See Below Constitutional: Reports: No Symptoms HEENT: Reports: No Symptoms Respiratory: Reports: No Symptoms Cardiovascular: Reports: No Symptoms GI/Abdominal: Reports: No Symptoms : Reports: No Symptoms Musculoskeletal: Reports: Hand Pain Skin: Reports: Erythema, Wound Neurological: Reports: No Symptoms Psychiatric: Reports: No Symptoms Hematologic/Lymphatic: Reports: No Symptoms Immunologic: Reports: No Symptoms ED EXAM, SKIN/RASH Exam: See Below Exam Limited By: No Limitations General Appearance: Alert, No Apparent Distress Ears: Normal External Exam Nose: Normal Inspection Throat/Mouth: Normal Voice Head: Atraumatic Neck: Full Range of Motion Respiratory/Chest: No Respiratory Distress, Lungs Clear Cardiovascular: Normal Peripheral Pulses, Regular Rate, Rhythm, No Edema, No JVD, No Murmur Peripheral Pulses: 3+: Radial (L), Radial (R) Extremities: Normal Range of Motion, Normal Capillary Refill (right wrist cat bite), Increased Warmth, Other. No: Slow Capillary Refill, Joint Swelling Neurological: Alert, Oriented, No Motor/Sensory Deficits Psychiatric: Normal Affect, Normal Mood Skin: Warm, Dry, Erythema, Increased Warmth, Wound/Incision Location, Skin: Upper Extremity, Right Characteristics: Erythematous Associated features: Warmth, Tenderness, Swelling (area marked with skin marker) Course - Vital Signs Last Recorded V/S: Last Vital Signs Temp 98.3 F 05/24/20 13:44 Pulse 81 05/24/20 13:44 Resp 20 05/24/20 13:44 BP 134/76 05/24/20 13:44 Pulse Ox 99 05/24/20 13:44 - Orders/Labs/Meds Orders: Active Orders 24 hr Category Date Time Status CULTURE WOUND + SMEAR [RM] Stat Lab 05/24/20 14:00 Received Meds: Medications Discontinued Medications Generic Name Dose Route Start Last Admin Trade Name Freq PRN Reason Stop Dose Admin Diphtheria/Tetanus/Acell Pertussis 0.5 ml 05/24/20 13:36 05/24/20 14:00 Boostrix IM 05/24/20 13:37 0.5 ml .ONCE ONE Administration Ampicillin Sodium/Sulbactam 100 mls @ 100 mls/hr 05/24/20 13:45 05/24/20 13:45 Sodium 3 gm/ Sodium Chloride IV 100 mls/hr Q6HR JOSE Administration Departure - Departure Time of Disposition: 15:15 Disposition: Home, Self-Care 01 Condition: Good Clinical Impression: Cat bite involving extremity Cellulitis Qualifiers: Site of cellulitis: extremity Site of cellulitis of extremity: upper extremity Laterality: right Qualified Code(s): L03.113 - Cellulitis of right upper limb - Discharge Information *PRESCRIPTION DRUG MONITORING PROGRAM REVIEWED*: Not Applicable *COPY OF PRESCRIPTION DRUG MONITORING REPORT IN PATIENT YUE: Not Applicable Prescriptions: Doxycycline [Vibra-Tabs] 100 mg PO Q12HR 10 Days tab Instructions: Animal Bite, Adult, [id number], Cellulitis, Adult, [id number] Referrals: PCP,None [Primary Care Provider] - Forms: ED Department Discharge Additional Instructions: keep area clean and dry. Watch for spreading redness. Return to ED for any inc reased or new concerning symptoms. Take the doxycycline as directed. Start probiotics again as discussed. - My Orders Last 24 Hours: My Active Orders 05/24/20 14:00 CULTURE WOUND + SMEAR [RM] Stat - Assessment/Plan Last 24 Hours: My Active Orders 05/24/20 14:00 CULTURE WOUND + SMEAR [RM] Stat Plan: Spoke with [facility] pharmacist, and we agreed upon giving patient 1 dose of 3gm IV unasyn and send patient home on doxycycline 100mg BID x 10 days. Discussed plan with patient and daughter and they are also agreeable to the plan, and verbalized understanding.
[2020-05-24] MEDS: Ampicillin/Sulbactam Na 3 GM in Sodium Chloride 0.9% 100 ML IV SCH (13:45)
[2020-05-24 13:46] VITALS: BP 134/76; PULSE 81
[2020-05-24] MEDS: Diphtheria,Pertussis(Acell),Tetanus Vaccine 0.5 ML SDV IM ONE (14:00)
== END 2020-05-24 14:50 | disposition home or self-care (01) ==
LOC: LB.ED 12:49
DX: S61.551A Open bite of right wrist, initial encounter (principal); L03.113 Cellulitis of right upper limb; I10 Essential (primary) hypertension; E11.9 Type 2 diabetes mellitus without complications; E03.9 Hypothyroidism, unspecified; Z23 Encounter for immunization; Z90.49 Acquired absence of other specified parts of digestive tract; Z88.8 Allergy status to other drugs, medicaments and biological substances; Z79.82 Long term (current) use of aspirin; Z79.899 Other long term (current) drug therapy; W55.01XA Bitten by cat, initial encounter
CPT/HCPCS: 87070; 87205; 90471; 90715; 96365; 99283; J0295; J7050; 87077

== ENCOUNTER 2020-05-24 19:15 | Inpatient (IN) | payer MEDICARE, BC ==
[2020-05-24] MEDS: Sodium Chloride 0.9% 1,000 ML IV SCH (19:50)
[2020-05-24] MEDS: Docusate Sodium 100 MG Cap PO SCH (21:00)
[2020-05-24] MEDS: cefTRIAXone 1 GM in Sodium Chloride 0.9% 50 ML IV SCH (21:01)
[2020-05-24] MEDS ORDERED: metroNIDAZOLE/Normal Saline 100 ML ONE (21:30)
[2020-05-24] MEDS: metroNIDAZOLE/Normal Saline 500 MG in Premix Bag 1 BAG IV SCH (21:36)
[2020-05-25] MEDS ORDERED: metroNIDAZOLE/Normal Saline 100 ML ONE ×2 (05:31→13:45)
[2020-05-25] MEDS: metroNIDAZOLE/Normal Saline 500 MG in Premix Bag 1 BAG IV SCH ×2 (05:37→13:50)
[2020-05-25] MEDS: Hydrochlorothiazide 25 MG Tab PO SCH (07:46)
[2020-05-25] MEDS: Levothyroxine 75 MCG Tab PO SCH (07:46)
[2020-05-25] MEDS: Losartan 50 MG Tab PO SCH (07:47)
[2020-05-25] MEDS: Aspirin 81 MG Tab.Chew PO SCH (07:51)
--- NOTE | 2020-05-25 08:15 | PCM.PN ---
- General Info Date of Service: 05/25/20 Admission Dx/Problem (Free Text): cellulitis right hand/arm Subjective Update: Decreased swelling to right hand/arm. Redness has surpassed the border 1 cm proximally and distally. IV antibiotics continued. Will consult Dr. Leong. Functional Status: Reports: Pain Controlled - Review of Systems General: Reports: No Symptoms. Denies: Fever HEENT: Reports: No Symptoms Pulmonary: Reports: No Symptoms Cardiovascular: Reports: No Symptoms Gastrointestinal: Reports: No Symptoms. Denies: Diarrhea Genitourinary: Reports: No Symptoms Musculoskeletal: Reports: Arm Pain, Hand Pain Skin: Reports: Other (redness persists, swelling improved overnight) Neurological: Reports: No Symptoms Psychiatric: Reports: No Symptoms - Patient Data Vitals - Most Recent: Last Vital Signs Temp 98.8 F 05/25/20 03:46 Pulse 68 05/25/20 03:46 Resp 16 05/25/20 03:46 BP 103/81 05/25/20 07:47 Pulse Ox 95 05/25/20 03:46 Weight - Most Recent: 150 lb 8 oz I&O - Last 24 Hours: Intake & Output 05/24/20 05/25/20 05/25/20 22:59 06:59 14:59 Intake Total 550 Balance 550 Med Orders - Current: Current Medications Aspirin (Aspirin) 81 mg PO DAILY [facility] Last Admin: 05/25/20 07:51 Dose: 81 mg Documented by: Docusate Sodium (Colace) 100 mg PO BEDTIME [facility] Last Admin: 05/24/20 21:00 Dose: Not Given Documented by: Glipizide (Glucotrol Xl) 2.5 mg PO DAILY@1700 [facility] Hydrochlorothiazide (Hydrochlorothiazide) 25 mg PO DAILY [facility] Last Admin: 05/25/20 07:46 Dose: 25 mg Documented by: Ceftriaxone Sodium 1 gm/ (Sodium Chloride) 50 mls @ 200 mls/hr IV Q24H [facility] Last Admin: 05/24/20 21:01 Dose: 200 mls/hr Documented by: Metronidazole 500 mg/ Premix 100 mls @ 100 mls/hr IV Q8H [facility] Last Admin: 05/25/20 05:37 Dose: 100 mls/hr Documented by: Sodium Chloride (Normal Saline) 1,000 mls @ 75 mls/hr IV ASDIRECTED [facility] Last Admin: 05/24/20 19:50 Dose: 75 mls/hr Documented by: Levothyroxine Sodium (Levothyroxine) 75 mcg PO ACBREAKFAST [facility] Last Admin: 05/25/20 07:46 Dose: 75 mcg Documented by: Losartan Potassium (Cozaar) 100 mg PO DAILY [facility] Last Admin: 05/25/20 07:47 Dose: 100 mg Documented by: Simvastatin (Zocor) 20 mg PO BEDTIME [facility] Discontinued Medications Metronidazole (Flagyl 500 Mg In Ns 100 Ml) Confirm Administered Dose 100 mls @ as directed .ROUTE .STK-MED ONE Stop: 05/24/20 21:31 Last Admin: 05/25/20 06:32 Dose: Not Given Documented by: Metronidazole (Flagyl 500 Mg In Ns 100 Ml) Confirm Administered Dose 100 mls @ as directed .ROUTE .STK-MED ONE Stop: 05/25/20 05:32 Last Admin: 05/25/20 06:32 Dose: Not Given Documented by: Sepsis Event Note - Evaluation Sepsis Screening Result: No Definite Risk - Focused Exam Vital Signs: Vital Signs Temp Pulse Resp BP BP Pulse Ox 05/25/20 07:47 103/81 05/25/20 03:46 98.8 F 68 16 133/45 L 95 05/25/20 00:00 98.6 F 74 16 137/47 L 94 L 05/24/20 20:20 99.8 F 87 18 156/80 H 97 - Problem List Review Problem List Initiated/Reviewed/Updated: Yes - My Orders Last 24 Hours: My Active Orders 05/24/20 19:45 Sodium Chloride 0.9% [Normal Saline] 1,000 ml IV ASDIRECTED 05/24/20 20:11 Admission Status [Patient Status] [ADT] Routine 05/24/20 20:20 Activity as Tolerated [RC] .Routine Vital Signs [RC] 08,12,16,20,00,04 05/24/20 21:00 Docusate Sodium [Colace] 100 mg PO BEDTIME cefTRIAXone [Rocephin] 1 gm Sodium Chloride 0.9% [Normal Saline] 50 ml IV Q24H 05/24/20 21:56 CULTURE MRSA SURVEY [RM] Routine 05/24/20 22:00 metroNIDAZOLE/Normal Saline [Flagyl 500 MG in NS 100 ML] 500 mg Premix Bag 1 bag IV Q8H 05/25/20 Breakfast Consistent Carbohydrate Diet [DIET] Levothyroxine 75 mcg PO ACBREAKFAST 05/25/20 08:00 Aspirin 81 mg PO DAILY Losartan [Cozaar] 100 mg PO DAILY hydroCHLOROthiazide 25 mg PO DAILY 05/25/20 17:00 glipiZIDE [Glucotrol XL] 2.5 mg PO DAILY@1700 05/25/20 20:00 Simvastatin [Zocor] 20 mg PO BEDTIME
--- NOTE | 2020-05-25 08:31 | PCM.SN.2 ---
- Free Text/Narrative Note: Report and update given to Dr. Leong who has assumed cares of this patient.
--- NOTE | 2020-05-25 09:16 | PCM.PN ---
- General Info Date of Service: 05/25/20 Subjective Update: Patient notes her arm feels much better and has improved. She denies any fever or chills. She is able to move the arm more than yesterday. She denies any chest pain, no shortness of breath and no other symptoms. Functional Status: Reports: Pain Controlled, Tolerating Diet, Ambulating - Review of Systems General: Reports: No Symptoms HEENT: Reports: No Symptoms Pulmonary: Reports: No Symptoms Cardiovascular: Reports: No Symptoms Gastrointestinal: Reports: No Symptoms Genitourinary: Reports: No Symptoms Musculoskeletal: Reports: No Symptoms Skin: Reports: Rash, Other Neurological: Reports: No Symptoms Psychiatric: Reports: No Symptoms - Patient Data Vitals - Most Recent: Last Vital Signs Temp 37.1 C 05/25/20 03:46 Pulse 68 05/25/20 03:46 Resp 16 05/25/20 03:46 BP 103/81 05/25/20 07:47 Pulse Ox 95 05/25/20 03:46 Weight - Most Recent: 68.266 kg I&O - Last 24 Hours: Intake & Output 05/24/20 05/25/20 05/25/20 22:59 06:59 14:59 Intake Total 550 Balance 550 Med Orders - Current: Current Medications Aspirin (Aspirin) 81 mg PO DAILY [facility] Last Admin: 05/25/20 07:51 Dose: 81 mg Documented by: Docusate Sodium (Colace) 100 mg PO BEDTIME [facility] Last Admin: 05/24/20 21:00 Dose: Not Given Documented by: Glipizide (Glucotrol Xl) 2.5 mg PO DAILY@1700 [facility] Hydrochlorothiazide (Hydrochlorothiazide) 25 mg PO DAILY [facility] Last Admin: 05/25/20 07:46 Dose: 25 mg Documented by: Ceftriaxone Sodium 1 gm/ (Sodium Chloride) 50 mls @ 200 mls/hr IV Q24H [facility] Last Admin: 05/24/20 21:01 Dose: 200 mls/hr Documented by: Metronidazole 500 mg/ Premix 100 mls @ 100 mls/hr IV Q8H [facility] Last Admin: 05/25/20 05:37 Dose: 100 mls/hr Documented by: Sodium Chloride (Normal Saline) 1,000 mls @ 75 mls/hr IV ASDIRECTED [facility] Last Admin: 05/24/20 19:50 Dose: 75 mls/hr Documented by: Levothyroxine Sodium (Levothyroxine) 75 mcg PO ACBREAKFAST [facility] Last Admin: 05/25/20 07:46 Dose: 75 mcg Documented by: Losartan Potassium (Cozaar) 100 mg PO DAILY [facility] Last Admin: 05/25/20 07:47 Dose: 100 mg Documented by: Simvastatin (Zocor) 20 mg PO BEDTIME [facility] Discontinued Medications Metronidazole (Flagyl 500 Mg In Ns 100 Ml) Confirm Administered Dose 100 mls @ as directed .ROUTE .STK-MED ONE Stop: 05/24/20 21:31 Last Admin: 05/25/20 06:32 Dose: Not Given Documented by: Metronidazole (Flagyl 500 Mg In Ns 100 Ml) Confirm Administered Dose 100 mls @ as directed .ROUTE .STK-MED ONE Stop: 05/25/20 05:32 Last Admin: 05/25/20 06:32 Dose: Not Given Documented by: - Exam General: Alert, Oriented, Cooperative HEENT: Pupils Equal, Pupils Reactive, EOMI Neck: Supple Lungs: Clear to Auscultation, Normal Respiratory Effort Cardiovascular: Regular Rate, Regular Rhythm Extremities: Redness Peripheral Pulses: 2+: Radial (L), Radial (R) Skin: Other (erythema, marked at borders up the forearm and arm) Sepsis Event Note - Evaluation Sepsis Screening Result: No Definite Risk - Focused Exam Vital Signs: Vital Signs Temp Pulse Resp BP BP Pulse Ox 05/25/20 07:47 103/81 05/25/20 03:46 37.1 C 68 16 133/45 L 95 05/25/20 00:00 37.0 C 74 16 137/47 L 94 L - Problem List & Annotations (1) Cat bite involving extremity SNOMED Code(s): 951719033, [id number] Code(s): OPP6580 - Status: Acute Priority: High Current Visit: Yes (2) Cellulitis SNOMED Code(s): 632062124 Code(s): L03.90 - CELLULITIS, UNSPECIFIED Status: Acute Priority: High Current Visit: Yes Qualifiers: Site of cellulitis: extremity Site of cellulitis of extremity: upper extremity Laterality: right Qualified Code(s): L03.113 - Cellulitis of right upper limb - Problem List Review Problem List Initiated/Reviewed/Updated: Yes - Plan Plan:: Patient improvement seen. We will continue with current antibiotics as there is improvement and patient is sensitive to antibiotics which can cause C. diff with this patient. We will f/u in the AM for further improvement and if there is no change or worsening symptoms we will change antibiotics.
[2020-05-25] MEDS: Non-Formulary Medication 1 Each (Liraglutide [Victoza] 1.8 MG) SUBCUT SCH (09:55)
[2020-05-25] MEDS: Sodium Chloride 0.9% 1,000 ML IV SCH (10:43)
[2020-05-25] MEDS: glipiZIDE 2.5 MG Tab.ER PO SCH (17:53)
[2020-05-25] MEDS: Simvastatin 20 MG Tab PO SCH (19:32)
[2020-05-25] MEDS: Docusate Sodium 100 MG Cap PO SCH (19:32)
[2020-05-25] MEDS: cefTRIAXone 1 GM in Sodium Chloride 0.9% 50 ML IV SCH (21:08)
[2020-05-25] MEDS: metroNIDAZOLE/Normal Saline 100 ML IV SCH (21:40)
[2020-05-26] MEDS: Sodium Chloride 0.9% 1,000 ML IV SCH ×2 (02:26→17:45)
[2020-05-26] MEDS: metroNIDAZOLE/Normal Saline 100 ML IV SCH ×3 (05:56→21:44)
[2020-05-26] MEDS: Levothyroxine 75 MCG Tab PO SCH (07:02)
[2020-05-26] MEDS: Aspirin 81 MG Tab.Chew PO SCH (08:14)
[2020-05-26] MEDS: Losartan 50 MG Tab PO SCH (08:14)
[2020-05-26] MEDS: Non-Formulary Medication 1 Each (Liraglutide [Victoza] 1.8 MG) SUBCUT SCH (08:15)
[2020-05-26] MEDS: Hydrochlorothiazide 25 MG Tab PO SCH (08:15)
--- NOTE | 2020-05-26 09:04 | PCM.PN ---
- General Info Date of Service: 05/26/20 Subjective Update: Patient notes improvement of the forearm. She does notice the thumb area continues to be swollen. She denies any fever or chills. Patient doing well overall and feels better. Functional Status: Reports: Pain Controlled - Review of Systems General: Reports: No Symptoms HEENT: Reports: No Symptoms Pulmonary: Reports: No Symptoms Cardiovascular: Reports: No Symptoms Gastrointestinal: Reports: No Symptoms Genitourinary: Reports: No Symptoms Musculoskeletal: Reports: Other (right hand swelling, improved forearm and arm swelling) - Patient Data Vitals - Most Recent: Last Vital Signs Temp 36.7 C 05/26/20 04:00 Pulse 66 05/26/20 04:00 Resp 16 05/26/20 04:00 BP 147/57 H 05/26/20 08:14 Pulse Ox 96 05/26/20 04:00 Weight - Most Recent: 68.039 kg I&O - Last 24 Hours: Intake & Output 05/25/20 05/26/20 05/26/20 22:59 06:59 14:59 Intake Total 1600 600 Output Total 900 960 Balance 700 -360 Med Orders - Current: Current Medications Aspirin (Aspirin) 81 mg PO DAILY [facility] Last Admin: 05/26/20 08:14 Dose: 81 mg Documented by: Docusate Sodium (Colace) 100 mg PO BEDTIME [facility] Last Admin: 05/25/20 19:32 Dose: Not Given Documented by: Glipizide (Glucotrol Xl) 2.5 mg PO DAILY@1700 [facility] Last Admin: 05/25/20 17:53 Dose: 2.5 mg Documented by: Hydrochlorothiazide (Hydrochlorothiazide) 25 mg PO DAILY [facility] Last Admin: 05/26/20 08:15 Dose: 25 mg Documented by: Ceftriaxone Sodium 1 gm/ (Sodium Chloride) 50 mls @ 200 mls/hr IV Q24H [facility] Last Admin: 05/25/20 21:08 Dose: 200 mls/hr Documented by: Sodium Chloride (Normal Saline) 1,000 mls @ 75 mls/hr IV ASDIRECTED [facility] Last Admin: 05/26/20 02:26 Dose: 75 mls/hr Documented by: Metronidazole (Flagyl 500 Mg In Ns 100 Ml) 100 mls @ 100 mls/hr IV Q8H [facility] Last Admin: 05/26/20 05:56 Dose: 100 mls/hr Documented by: Levothyroxine Sodium (Levothyroxine) 75 mcg PO ACBREAKFAST [facility] Last Admin: 05/26/20 07:02 Dose: 75 mcg Documented by: Losartan Potassium (Cozaar) 100 mg PO DAILY [facility] Last Admin: 05/26/20 08:14 Dose: 100 mg Documented by: Non-Formulary Medication (Liraglutide [Victoza]) 1.8 mg SUBCUT DAILY [facility] Last Admin: 05/26/20 08:15 Dose: 1.8 mg Documented by: Simvastatin (Zocor) 20 mg PO BEDTIME [facility] Last Admin: 05/25/20 19:32 Dose: 20 mg Documented by: Discontinued Medications Metronidazole 500 mg/ Premix 100 mls @ 100 mls/hr IV Q8H [facility] Last Admin: 05/25/20 13:50 Dose: 100 mls/hr Documented by: Metronidazole (Flagyl 500 Mg In Ns 100 Ml) Confirm Administered Dose 100 mls @ as directed .ROUTE .STK-MED ONE Stop: 05/24/20 21:31 Last Admin: 05/25/20 06:32 Dose: Not Given Documented by: Metronidazole (Flagyl 500 Mg In Ns 100 Ml) Confirm Administered Dose 100 mls @ as directed .ROUTE .STK-MED ONE Stop: 05/25/20 05:32 Last Admin: 05/25/20 06:32 Dose: Not Given Documented by: Metronidazole (Flagyl 500 Mg In Ns 100 Ml) Confirm Administered Dose 100 mls @ as directed .ROUTE .STK-MED ONE Stop: 05/25/20 13:46 Last Admin: 05/25/20 13:58 Dose: Not Given Documented by: - Exam General: Alert, Oriented, Cooperative HEENT: Pupils Equal, Pupils Reactive, EOMI Neck: Supple Lungs: Clear to Auscultation, Normal Respiratory Effort Cardiovascular: Regular Rate, Regular Rhythm GI/Abdominal Exam: Normal Bowel Sounds Extremities: Redness (of the right hand and wrist area), Other (improved erythema of the forearm and upper arm) Sepsis Event Note - Evaluation Sepsis Screening Result: No Definite Risk - Focused Exam Vital Signs: Vital Signs Temp Pulse Resp BP BP Pulse Ox 05/26/20 08:14 147/57 H 05/26/20 04:00 36.7 C 66 16 114/43 L 96 05/25/20 23:38 36.6 C 65 18 150/44 H 97 - Problem List & Annotations (1) Cat bite involving extremity SNOMED Code(s): 786278915, 656907146 Code(s): DSM3754 - Status: Acute Priority: High Current Visit: Yes (2) Cellulitis SNOMED Code(s): 909583253 Code(s): L03.90 - CELLULITIS, UNSPECIFIED Status: Acute Priority: High Current Visit: Yes Qualifiers: Site of cellulitis: extremity Site of cellulitis of extremity: upper extr emity Laterality: right Qualified Code(s): L03.113 - Cellulitis of right upper limb - Problem List Review Problem List Initiated/Reviewed/Updated: Yes - Plan Plan:: Patient improvement seen. We will continue with current antibiotics as there is improvement and patient is sensitive to antibiotics which can cause C. diff with this patient. We will f/u in the AM for further improvement and if there is no change or worsening symptoms we will change antibiotics. 05/26/20 Small improvement of cellulitis of arm and forearm. We will continue to monitor progress and if improvement plateaus or reverses we will have to change antibiotics.
[2020-05-26] MEDS: glipiZIDE 2.5 MG Tab.ER PO SCH (17:44)
[2020-05-26] MEDS: Simvastatin 20 MG Tab PO SCH (19:38)
[2020-05-26] MEDS: Docusate Sodium 100 MG Cap PO SCH (19:41)
[2020-05-26] MEDS: cefTRIAXone 1 GM in Sodium Chloride 0.9% 50 ML IV SCH (21:07)
[2020-05-27] MEDS: metroNIDAZOLE/Normal Saline 100 ML IV SCH ×3 (06:00→21:07)
[2020-05-27] MEDS: Levothyroxine 75 MCG Tab PO SCH (06:00)
[2020-05-27] MEDS: Hydrochlorothiazide 25 MG Tab PO SCH (08:34)
[2020-05-27] MEDS: Aspirin 81 MG Tab.Chew PO SCH (08:34)
[2020-05-27] MEDS: Non-Formulary Medication 1 Each (Liraglutide [Victoza] 1.8 MG) SUBCUT SCH (08:34)
[2020-05-27] MEDS: Losartan 50 MG Tab PO SCH (08:34)
--- NOTE | 2020-05-27 12:05 | PN ---
DATE OF VISIT: 05/27/2020 Colette is doing better this morning. I saw her last night and this morning, her cellulitis is much improved and she is afebrile. I did ask the nurses to begin soaking her hand in Hibiclens and water 3 times a day because she has been having some mild serous drainage at the site of the cat bite. IMPRESSION: Improved cellulitis. PLAN: We will continue her antibiotics at least through this weekend. It sounds like her cellulitis was quite severe, but it has turned around and we will not switch her antibiotics, as this combination seems to be working well. She understands and agrees to this plan. TOM /[id number]
[2020-05-27] MEDS: glipiZIDE 2.5 MG Tab.ER PO SCH (17:41)
[2020-05-27] MEDS: Simvastatin 20 MG Tab PO SCH (19:17)
[2020-05-27] MEDS: Docusate Sodium 100 MG Cap PO SCH (19:20)
[2020-05-27] MEDS: cefTRIAXone 1 GM in Sodium Chloride 0.9% 50 ML IV SCH (20:42)
[2020-05-27] MEDS: Sodium Chloride 0.9% 1,000 ML IV SCH (23:23)
[2020-05-28] MEDS: metroNIDAZOLE/Normal Saline 100 ML IV SCH ×3 (06:19→21:51)
[2020-05-28] MEDS: Levothyroxine 75 MCG Tab PO SCH (06:22)
[2020-05-28] MEDS: Losartan 50 MG Tab PO SCH (08:14)
[2020-05-28] MEDS: Hydrochlorothiazide 25 MG Tab PO SCH (08:16)
[2020-05-28] MEDS: Aspirin 81 MG Tab.Chew PO SCH (08:16)
[2020-05-28] MEDS: Non-Formulary Medication 1 Each (Liraglutide [Victoza] 1.8 MG) SUBCUT SCH (08:17)
[2020-05-28] MEDS: Loperamide 2 MG Cap PO PRN (12:12)
--- NOTE | 2020-05-28 12:45 | PN ---
DATE OF VISIT: 05/28/2020 Colette Burgess is feeling reasonably good. She has had some loose stools, but they are semi- formed. This started yesterday. She is understandably concerned about the possibility of C difficile colitis. Her stools are not watery. She remains afebrile. Her cellulitis has markedly improved. She only has a localized cellulitis about the right wrist. I suspect by tomorrow she should be able to come off her IV antibiotics and go home on something oral. She is excited about that. I did start soaking this in Hibiclens and water yesterday to hopefully keep the local skin laceration area clean. She feels that has helped. C difficile toxin antigen is pending at this time. All questions were answered. We will continue. She is markedly improved. TOM /[id number]
[2020-05-28] MEDS: glipiZIDE 2.5 MG Tab.ER PO SCH (16:59)
[2020-05-28] MEDS: Simvastatin 20 MG Tab PO SCH (20:48)
[2020-05-28] MEDS: Docusate Sodium 100 MG Cap PO SCH (20:49)
[2020-05-28] MEDS: cefTRIAXone 1 GM in Sodium Chloride 0.9% 50 ML IV SCH (20:53)
[2020-05-29] MEDS: Levothyroxine 75 MCG Tab PO SCH (06:03)
[2020-05-29] MEDS: metroNIDAZOLE/Normal Saline 100 ML IV SCH (06:08)
[2020-05-29] MEDS: Losartan 50 MG Tab PO SCH (08:08)
[2020-05-29] MEDS: Non-Formulary Medication 1 Each (Liraglutide [Victoza] 1.8 MG) SUBCUT SCH (08:12)
[2020-05-29] MEDS: Hydrochlorothiazide 25 MG Tab PO SCH (08:12)
[2020-05-29] MEDS: Loperamide 2 MG Cap PO PRN (08:56)
[2020-05-29 09:05] VITALS: BP 145/56; PULSE 66
--- NOTE | 2020-05-29 09:51 | PCM.DCSUM1 ---
Discharge Summary - Discharge Data Discharge Date: 05/29/20 Discharge Disposition: Home, Self-Care 01 Condition: Good - Referral to Home Health Primary Care Physician: PCP None - Discharge Diagnosis/Problem(s) (1) Cat bite involving extremity SNOMED Code(s): 574456057, [id number] ICD Code: [id number] - Status: Acute Priority: High Current Visit: Yes (2) Cellulitis SNOMED Code(s): 191391457 ICD Code: L03.90 - CELLULITIS, UNSPECIFIED Status: Acute Priority: High Current Visit: Yes Qualifiers: Site of cellulitis: extremity Site of cellulitis of extremity: upper extremity Laterality: right Qualified Code(s): L03.113 - Cellulitis of right upper limb - Patient Instructions Diet: Usual Diet as Tolerated Activity: As Tolerated Driving: May Drive Today Wound/Incision Care: Keep Operative Site/Wound Site Clean and Dry Notify Provider of: Fever, Increased Pain, Swelling and Redness, Drainage - Discharge Plan Prescriptions/Med Rec: RX: metroNIDAZOLE [Flagyl] 500 mg PO Q8H #30 tab cephALEXin [Keflex] 500 mg PO Q8H #30 cap Home Medications: Home Meds RX: Simvastatin 1 tab PO DAILY 11/09/13 [History] RX: Aspirin [Halfprin] 1 tab PO DAILY 05/21/15 [History] RX: Losartan/Hydrochlorothiazide [Losartan-HCTZ 100-25 MG] 25 - 100 mg PO DAILY 05/21/15 [History] RX: Liraglutide [Victoza] 1.8 mg SUBCUT DAILY 04/13/17 [History] RX: Levothyroxine [Synthroid] 75 mcg PO ACBREAKFAST 01/02/19 [History] RX: Aspirin 81 mg PO DAILY tab.chew 05/29/20 [Rx] RX: Docusate Sodium [Colace] 100 mg PO BEDTIME cap 05/29/20 [Rx] RX: Levothyroxine 75 mcg PO ACBREAKFAST tablet 05/29/20 [Rx] RX: Loperamide [Imodium] 2 mg PO Q6H PRN cap 05/29/20 [Rx] RX: Losartan [Cozaar] 100 mg PO DAILY tablet 05/29/20 [Rx] RX: glipiZIDE [Glucotrol XL] 2.5 mg PO DAILY@1700 tab.er 05/29/20 [Rx] RX: hydroCHLOROthiazide [Hydrochlorothiazide] 25 mg PO DAILY tablet 05/29/20 [Rx] RX: metroNIDAZOLE [Flagyl] 500 mg PO Q8H #30 tab 05/29/20 [Rx] cephALEXin [Keflex] 500 mg PO Q8H #30 cap 05/29/20 [Rx] Patient Handouts: Animal Bite, Adult, [id number], Wound Infection, [id number], Cellulitis, Adult, [id number] - Discharge Summary/Plan Comment DC Time >30 min.: No Discharge Summary/Plan Comment: Counseled on continued monitoring for wound changes or return of erythema. Discussed f/u in clinic in less than 7 days for recheck. Rtc or ER as needed if any return of cellulitis or infection. Counseled on wound care and management. Counseled on antibiotics and side effects and oral course for 10 days. F/u as directed and as needed for any further concerns. - Patient Data Vitals - Most Recent: Last Vital Signs Temp 36.4 C 05/29/20 08:00 Pulse 66 05/29/20 08:00 Resp 16 05/29/20 08:00 BP 138/59 L 05/29/20 08:08 Pulse Ox 98 05/29/20 08:00 Weight - Most Recent: 68.039 kg I&O - Last 24 hours: Intake & Output 05/28/20 05/29/20 05/29/20 22:59 06:59 14:59 Intake Total 960 1690 Output Total 1425 Balance -465 1690 Lab Results - Last 24 hrs: Laboratory Results - last 24 hr 05/29/20 Range/Units 07:18 POC Glucose 90 (74-110) mg/dL IONA Results - Last 24 hrs: Microbiology 05/27/20 14:30 Clostridioides difficile (PCR) - Final Stool / Feces Med Orders - Current: Current Medications Aspirin (Aspirin) 81 mg PO DAILY [facility] Last Admin: 05/28/20 08:16 Dose: 81 mg Documented by: Docusate Sodium (Colace) 100 mg PO BEDTIME [facility] Last Admin: 05/28/20 20:49 Dose: Not Given Documented by: Glipizide (Glucotrol Xl) 2.5 mg PO DAILY@1700 [facility] Last Admin: 05/28/20 16:59 Dose: 2.5 mg Documented by: Hydrochlorothiazide (Hydrochlorothiazide) 25 mg PO DAILY [facility] Last Admin: 05/29/20 08:12 Dose: 25 mg Documented by: Ceftriaxone Sodium 1 gm/ (Sodium Chloride) 50 mls @ 200 mls/hr IV Q24H [facility] Last Admin: 05/28/20 20:53 Dose: 200 mls/hr Documented by: Sodium Chloride (Normal Saline) 1,000 mls @ 75 mls/hr IV ASDIRECTED [facility] Last Admin: 05/27/20 23:23 Dose: 75 mls/hr Documented by: Metronidazole (Flagyl 500 Mg In Ns 100 Ml) 100 mls @ 100 mls/hr IV Q8H [facility] Last Admin: 05/29/20 06:08 Dose: 100 mls/hr Documented by: Levothyroxine Sodium (Levothyroxine) 75 mcg PO ACBREAKFAST [facility] Last Admin: 05/29/20 06:03 Dose: 75 mcg Documented by: Loperamide HCl (Imodium) 2 mg PO Q6H PRN PRN Reason: Anxiety Last Admin: 05/29/20 08:56 Dose: 2 mg Documented by: Losartan Potassium (Cozaar) 100 mg PO DAILY [facility] Last Admin: 05/29/20 08:08 Dose: 100 mg Documented by: Non-Formulary Medication (Liraglutide [Victoza]) 1.8 mg SUBCUT DAILY [facility] Last Admin: 05/29/20 08:12 Dose: 1.8 mg Documented by: Simvastatin (Zocor) 20 mg PO BEDTIME [facility] Last Admin: 05/28/20 20:48 Dose: 20 mg Documented by: Discontinued Medications Metronidazole 500 mg/ Premix 100 mls @ 100 mls/hr IV Q8H [facility] Last Admin: 05/25/20 13:50 Dose: 100 mls/hr Documented by: Metronidazole (Flagyl 500 Mg In Ns 100 Ml) Confirm Administered Dose 100 mls @ as directed .ROUTE .STK-MED ONE Stop: 05/24/20 21:31 Last Admin: 05/25/20 06:32 Dose: Not Given Documented by: Metronidazole (Flagyl 500 Mg In Ns 100 Ml) Confirm Administered Dose 100 mls @ as directed .ROUTE .STK-MED ONE Stop: 05/25/20 05:32 Last Admin: 05/25/20 06:32 Dose: Not Given Documented by: Metronidazole (Flagyl 500 Mg In Ns 100 Ml) Confirm Administered Dose 100 mls @ as directed .ROUTE .STK-MED ONE Stop: 05/25/20 13:46 Last Admin: 05/25/20 13:58 Dose: Not Given Documented by:
== END 2020-05-29 10:57 | disposition home or self-care (01) | DRG 603 ==
LOC: LB.MS 19:15 → UNDOADMIN 19:15 → LB.MS 20:20
PROVIDERS: ADMIT Nurse Practitioner; ATTEND Nurse Practitioner
DX: L03.113 Cellulitis of right upper limb (principal)
CPT/HCPCS: 82962; 87070; 87077; 87205; 87493; 90471; 90715; 96365; 99283; 99283-25; A9270-GY; J0295; J0696; J3490; J7030; J7050

== ENCOUNTER 2020-06-02 13:14 | Emergency (ER) | payer MEDICARE, BC ==
[2020-06-02 14:03] VITALS: BP 140/50; PULSE 75
[2020-06-02] MEDS ORDERED: cefTRIAXone 1 GM Vial ONE (14:04)
--- NOTE | 2020-06-02 14:05 | EDM.PDOC ---
ED HPI GENERAL MEDICAL PROBLEM - General Chief Complaint: General Stated Complaint: CAT BITE POSSIBLE INFECTION Time Seen by Provider: 06/02/20 14:00 Source of Information: Reports: Patient History Limitations: Reports: No Limitations - History of Present Illness INITIAL COMMENTS - FREE TEXT/NARRATIVE: Patient discharged on 05/29 on Keflex and Flagyl after 3 days of Rocephin IV. Feeling week with slight fever yesterday and slightly weak today. Concerned her electrolytes may be off. Requesting blood work to check. NO change in appearance of wrist Has metallic taste in her mouth. Onset Date: 06/01/20 Duration: Day(s): (one day) Location: Reports: Generalized Severity: Mild Improves with: Reports: None Worsens with: Reports: None Associated Symptoms: Reports: Fever/Chills, Weakness - Related Data Allergies Allergy/AdvReac Type Severity Reaction Status Date / Time metformin Allergy Diarrhea Verified 05/24/20 13:30 Home Meds: Home Meds Simvastatin 1 tab PO DAILY 11/09/13 [History] Aspirin [Halfprin] 1 tab PO DAILY 05/21/15 [History] Losartan/Hydrochlorothiazide [Losartan-HCTZ 100-25 MG] 25 - 100 mg PO DAILY 05/21/15 [History] Liraglutide [Victoza] 1.8 mg SUBCUT DAILY 04/13/17 [History] Levothyroxine [Synthroid] 75 mcg PO ACBREAKFAST 01/02/19 [History] Aspirin 81 mg PO DAILY tab.chew 05/29/20 [Rx] Docusate Sodium [Colace] 100 mg PO BEDTIME cap 05/29/20 [Rx] Levothyroxine 75 mcg PO ACBREAKFAST tablet 05/29/20 [Rx] Loperamide [Imodium] 2 mg PO Q6H PRN cap 05/29/20 [Rx] Losartan [Cozaar] 100 mg PO DAILY tablet 05/29/20 [Rx] cephALEXin [Keflex] 500 mg PO Q8H #30 cap 05/29/20 [Rx] glipiZIDE [Glucotrol XL] 2.5 mg PO DAILY@1700 tab.er 05/29/20 [Rx] hydroCHLOROthiazide [Hydrochlorothiazide] 25 mg PO DAILY tablet 05/29/20 [Rx] metroNIDAZOLE [Flagyl] 500 mg PO Q8H #30 tab 05/29/20 [Rx] Cefuroxime Axetil [Ceftin] 500 mg PO BID 7 Days #14 tablet 06/02/20 [Rx] Past Medical History HEENT History: Reports: Impaired Vision, Other (See Below) Other HEENT History: astigmatism Cardiovascular History: Reports: Heart Murmur, Hypertension Respiratory History: Reports: Other (See Below) Other Respiratory History: Cough x 2 wks, slightly productive, clear Gastrointestinal History: Reports: Diverticulosis, Other (See Below) Other Gastrointestinal History: sometimes incontinence when diarrhea or loose Genitourinary History: Reports: Urinary Incontinence, Other (See Below) Other Genitourinary History: presently with [employer] History: Reports: Musculoskeletal History: Reports: Arthritis Endocrine/Metabolic History: Reports: Diabetes, Type II, Hypothyroidism Other Endocrine/Metabolic History: Hx hyperthyroidism but treated with iodine and now hypo Immunologic History: Reports: None Dermatologic History: Reports: Other (See Below) Other Dermatologic History: 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 - Infectious Disease History Infectious Disease History: Reports: C-Difficile, Measles - Past Surgical History HEENT Surgical History: Reports: Oral Surgery GI Surgical History: Reports: Cholecystectomy, Colonoscopy Female Surgical History: Reports: Hysterectomy, Salpingo-Oophorectomy Social & Family History - Family History Family Medical History: Noncontributory - Caffeine Use Caffeine Use: Reports: Coffee Caffeine Use Comment: 1 cup per day ED ROS GENERAL - Review of Systems Review Of Systems: See Below Constitutional: Reports: Fever, Weakness HEENT: Reports: No Symptoms Respiratory: Denies: Shortness of Breath, Wheezing, Cough Cardiovascular: Denies: Chest Pain GI/Abdominal: Denies: Abdominal Pain, Anorexia, Diarrhea, Nausea, Vomiting : Reports: No Symptoms Skin: Reports: Other (Redness at cat bit has cleared) ED EXAM, GENERAL - Physical Exam Exam: See Below Exam Limited By: No Limitations General Appearance: Alert, WD/WN, No Apparent Distress Ears: Normal External Exam Nose: Normal Inspection Head: Atraumatic, Normocephalic Neck: Supple, Non-Tender Respiratory/Chest: No Respiratory Distress, Lungs Clear, Normal Breath Sounds Cardiovascular: Regular Rate, Rhythm GI/Abdominal: Soft, Non-Tender Back Exam: Normal Inspection Extremities: Normal Range of Motion, Non-Tender, Other (Left wrist without redness, pus drainage or erythema or red streaks) Skin Exam: Warm, Dry, Normal Color, No Rash Course - Vital Signs Last Recorded V/S: Last Vital Signs Temp 98.5 F 06/02/20 13:47 Pulse 75 06/02/20 13:47 Resp 16 06/02/20 13:47 BP 140/50 L 06/02/20 13:47 Pulse Ox 98 06/02/20 13:47 - Orders/Labs/Meds Labs: Laboratory Tests 06/02/20 06/02/20 Range/Units 14:00 14:00 WBC 5.9 (4.0-11.0) K/uL RBC 4.61 (3.80-5.80) M/uL Hgb 14.0 (11.5-16.5) g/dL Hct 41.0 (37.0-47.0) % MCV 89 (76-96) fL MCH 30.4 (27.0-32.0) pg MCHC 34.1 (31.0-35.0) g/dL RDW 13.3 (11.0-16.0) % Plt Count 267 (150-500) K/uL MPV 9.6 (6.0-10.0) fL Neut % (Auto) 72.2 H (45.0-70.0) % Lymph % (Auto) 14.0 L (20.0-40.0) % Angelina % (Auto) 11.3 H (3.0-10.0) % Eos % (Auto) 2.0 (1.0-5.0) % Baso % (Auto) 0.5 (0.0-0.5) % Neut # (Auto) 4.29 (2.00-7.50) K/uL Lymph # (Auto) 0.83 L (1.50-4.00) K/uL Angelina # (Auto) 0.67 (0.20-0.80) K/uL Eos # (Auto) 0.12 (0.04-0.40) K/uL Baso # (Auto) 0.03 (0.02-0.10) K/uL Sodium 139 (136-145) mmol/L Potassium 3.4 L (3.5-5.1) mmol/L Chloride 97 L (98-107) mmol/L Carbon Dioxide 32.0 (21.0-32.0) mmol/L Anion Gap 13.4 (5.0-15.0) mmol/L BUN 10 D (8-26) mg/dL Creatinine 1.00 (0.55-1.02) mg/dL Est Cr Clr Drug Dosing 36.50 mL/min Estimated GFR (MDRD) 53 L (>60) MLS/MIN BUN/Creatinine Ratio 10.0 (6-25) Glucose 138 H (74-100) mg/dL Calcium 9.7 (8.5-10.1) mg/dL Total Bilirubin 0.5 (0.0-1.0) mg/dL AST 31 (15-37) U/L ALT 34 (12-78) U/L Alkaline Phosphatase 58 (46-116) U/L Total Protein 8.1 (6.4-8.2) g/dL Albumin 3.9 (3.4-5.0) g/dL Globulin 4.2 (2.2-4.2) g/dL Albumin/Globulin Ratio 0.9 (0.8-2.0) Meds: Medications Discontinued Medications Generic Name Dose Route Start Last Admin Trade Name Freq PRN Reason Stop Dose Admin Ceftriaxone Sodium 1 gm 06/02/20 13:52 06/02/20 14:07 Rocephin IM 06/02/20 13:53 1 gm ONETIME ONE Administration Ceftriaxone Sodium Confirm 06/02/20 14:04 Rocephin Administered 06/02/20 14:05 Dose 1 gm .ROUTE .STK-MED ONE Departure - Departure Time of Disposition: 15:00 Disposition: Home, Self-Care 01 Condition: Good Clinical Impression: Cat bite involving extremity, Weakness - Discharge Information *PRESCRIPTION DRUG MONITORING PROGRAM REVIEWED*: Not Applicable *COPY OF PRESCRIPTION DRUG MONITORING REPORT IN PATIENT YUE: Not Applicable Prescriptions: Cefuroxime Axetil [Ceftin] 500 mg PO BID 7 Days #14 tablet Instructions: Animal Bite, Adult, [id number] Referrals: PCP,None [Primary Care Provider] - Forms: ED Department Discharge Additional Instructions: Stop Flagyl and Cephalexin Start Ceftin 500 mg 1 tablet twice a day for 7 days starting tomorrow in the morning Recheck for any worsening of symptoms such as redness, pus drainage, fever or red streaks either in clinic or in Emergency department. Symptoms may be and adverse reaction to Flagyl Return if symptoms worsen or do not clear in next 1-2 days - Problem List & Annotations (1) Weakness SNOMED Code(s): 92753261 Code(s): R53.1 - WEAKNESS Status: Acute (2) Adverse drug effect SNOMED Code(s): 89898546 Code(s): T50.905A - ADVERSE EFFECT OF UNSP DRUG/MEDS/BIOL SUBST, INIT Status: Acute
[2020-06-02] MEDS: cefTRIAXone 1 GM Vial IM ONE (14:07)
== END 2020-06-02 14:40 | disposition home or self-care (01) ==
LOC: LB.ED 13:14
DX: S61.552A Open bite of left wrist, initial encounter (principal); R53.1 Weakness; I10 Essential (primary) hypertension; E03.9 Hypothyroidism, unspecified; E11.9 Type 2 diabetes mellitus without complications; Z79.82 Long term (current) use of aspirin; Z79.899 Other long term (current) drug therapy; Z90.49 Acquired absence of other specified parts of digestive tract; Z90.710 Acquired absence of both cervix and uterus; Z88.8 Allergy status to other drugs, medicaments and biological substances; W55.01XA Bitten by cat, initial encounter
CPT/HCPCS: 36415; 80053; 85025; 96372; 99284; J0696

== ENCOUNTER 2023-01-24 11:35 | Emergency (ER) | payer MEDICARE ==
[2023-01-24] MEDS ORDERED: Methocarbamol 500 MG Tab ONE (12:00)
[2023-01-24] MEDS ORDERED: traMADol 50 MG Tab ONE (12:00)
[2023-01-24 12:20] VITALS: BP 145/57; PULSE 80
== END 2023-01-24 12:20 | disposition home or self-care (01) ==
LOC: LB.ED 11:35
DX: M46.1 Sacroiliitis, not elsewhere classified (principal); I10 Essential (primary) hypertension; E11.9 Type 2 diabetes mellitus without complications; E03.9 Hypothyroidism, unspecified; Z88.8 Allergy status to other drugs, medicaments and biological substances; Z79.82 Long term (current) use of aspirin; Z79.899 Other long term (current) drug therapy
CPT/HCPCS: 99283; A9270-GY

== ENCOUNTER 2024-05-04 02:53 | Emergency (ER) | payer MEDICARE ==
[2024-05-04 03:26] VITALS: PULSE 108
[2024-05-04] MEDS: Bacitracin Oint 1 GM U/D Packet TOP ONE (03:30)
[2024-05-04] MEDS: Lidocaine 1% 5 ML VIAL INJECT ONE (03:45)
[2024-05-04 04:17] VITALS: BP 155/67
== END 2024-05-04 03:34 | disposition home or self-care (01) ==
LOC: LB.ED 02:53
DX: S01.01XA Laceration without foreign body of scalp, initial encounter (principal); I10 Essential (primary) hypertension; E11.9 Type 2 diabetes mellitus without complications; E03.9 Hypothyroidism, unspecified; Z90.49 Acquired absence of other specified parts of digestive tract; Z90.710 Acquired absence of both cervix and uterus; Z79.899 Other long term (current) drug therapy; Z79.890 Hormone replacement therapy; Z88.8 Allergy status to other drugs, medicaments and biological substances; W01.0XXA Fall on same level from slipping, tripping and stumbling without subsequent striking against object, initial encounter; Y92.002 Bathroom of unspecified non-institutional (private) residence as the place of occurrence of the external cause
CPT/HCPCS: 12001; 99282; 99283

== ENCOUNTER 2024-10-23 14:19 | Inpatient (IN) | payer MEDICARE ==
[2024-10-23 15:32] LABS: HEMOGLOBIN 12.9 g/dL (11.5-16.5); MEAN CORPUSCULAR HEMOGLOBIN 29.7 pg (27.0-32.0); MEAN CORPUSCULAR HGB CONC 33.1 g/dL (31.0-35.0); MEAN PLATELET VOLUME 9.9 fL (6.0-10.0); RED BLOOD CELL COUNT 4.34 M/uL (3.80-5.80); RED CELL DISTRIBUTION WIDTH 13.6 % (11.0-16.0); WHITE BLOOD CELL COUNT,WBC 6.9 K/uL (4.0-11.0)
[2024-10-23 15:41] LABS: APPEARANCE,URINE TURBID (CLEAR); BILIRUBIN,URINE NEGATIVE (NEGATIVE); COLOR,URINE YELLOW; GLUCOSE,URINE NEGATIVE (NEGATIVE); KETONES,URINE NEGATIVE (NEGATIVE); NITRITE,URINE NEGATIVE (NEGATIVE); OCCULT BLOOD,URINE TRACE-INTACT (NEGATIVE); PH,URINE 7.5 (5.0-8.0); PROTEIN,URINE TRACE mg/dL (NEGATIVE); UROBILINOGEN,URINE 0.2 E.U./dL (0.2-1.0)
[2024-10-23 15:42] LABS: LEUKOCYTE ESTERASE,URINE LARGE (NEGATIVE); SQUAMOUS EPITHELIAL CELLS,UR FEW /HPF; WBC,URINE 50-75 /HPF
[2024-10-23 15:45] LABS: ANION GAP 10.9 mmol/L (5.0-15.0); CALCIUM 9.5 mg/dL (8.5-10.1); CREATININE 0.91 mg/dL (0.55-1.02); EST CRCL DRUG DOSING (CG) 37.39 mL/min; MAGNESIUM 1.8 mg/dL (1.8-2.4); POTASSIUM,K 3.9 mmol/L (3.5-5.1)
[2024-10-23] MEDS: hydrALAZINE 20 MG/ML SDV IVPUSH ONE (17:20)
[2024-10-23] MEDS: glipiZIDE 2.5 MG Tab.ER PO SCH (18:43)
[2024-10-23] MEDS: Losartan 25 MG Tab PO SCH ×3 (18:44→22:38)
[2024-10-23] MEDS: Heparin Sodium 5,000 Units/ML Vial SUBCUT SCH (18:45)
[2024-10-23] MEDS: predniSONE 20 MG Tab PO SCH (20:18)
[2024-10-23] MEDS: Sulfamethoxazole/Trimethoprim 800-160 MG Tab PO SCH (20:19)
[2024-10-23] MEDS: Morphine 2 MG/ML SYRINGE IM ONE (22:38)
[2024-10-24] MEDS: Levothyroxine 25 MCG Tab PO SCH (05:27)
[2024-10-24] MEDS: Heparin Sodium 5,000 Units/ML Vial SUBCUT SCH (05:27)
[2024-10-24] MEDS ORDERED: Liraglutide [Victoza] 18 MG/3 ML Pen SUBCUT SCH (08:00)
[2024-10-24] MEDS: LIRAGLUTIDE 18 MG/3 ML SUBCUT SCH (08:02)
[2024-10-24] MEDS: Simvastatin 20 MG Tab PO SCH (08:07)
[2024-10-24] MEDS: Lactobacillus Acidophilus/Lactobacillus Sporogenes (Probiotic) Tab PO SCH (08:07)
[2024-10-24] MEDS: Aspirin 81 MG Tab.Chew PO SCH (08:08)
[2024-10-24] MEDS: Ibuprofen 200 MG Tab PO PRN (11:10)
[2024-10-24] MEDS: Acetaminophen 325 MG Tab PO PRN (11:11)
[2024-10-24] MEDS ORDERED: Calcium Carbonate 500 MG Tab.Chew PO PRN (20:36)
[2024-10-24] MEDS: Calcium Carbonate 500 MG Tab.Chew PO PRN (20:36)
[2024-10-26] MEDS: predniSONE 20 MG Tab PO SCH (08:08)
[2024-10-26 11:53] VITALS: BP 144/51; PULSE 65
[2024-10-28] MEDS ORDERED: predniSONE 20 MG Tab PO SCH (08:00)
[2024-10-30] MEDS ORDERED: predniSONE 20 MG Tab PO SCH (08:00)
[2024-11-01] MEDS ORDERED: predniSONE 5 MG Tab PO SCH (08:00)
[2024-11-03] MEDS ORDERED: predniSONE 10 MG Tab PO SCH (08:00)
[2024-11-05] MEDS ORDERED: predniSONE 5 MG Tab PO SCH (08:00)
== END 2024-10-26 13:16 | disposition swing bed (61) | DRG 552 ==
LOC: LB.ED 14:19 → LB.MS 16:54
PROVIDERS: ADMIT Surgery; ATTEND Surgery
DX: M51.369 Other intervertebral disc degeneration, lumbar region without mention of lumbar back pain or lower extremity pain (principal); N39.0 Urinary tract infection, site not specified; R32 Unspecified urinary incontinence; H54.7 Unspecified visual loss; I10 Essential (primary) hypertension; M19.90 Unspecified osteoarthritis, unspecified site; E11.9 Type 2 diabetes mellitus without complications; Z79.890 Hormone replacement therapy; F15.90 Other stimulant use, unspecified, uncomplicated; R26.9 Unspecified abnormalities of gait and mobility; E03.9 Hypothyroidism, unspecified; Z86.19 Personal history of other infectious and parasitic diseases; Z90.49 Acquired absence of other specified parts of digestive tract; Z88.8 Allergy status to other drugs, medicaments and biological substances; Z79.01 Long term (current) use of anticoagulants; Z79.899 Other long term (current) drug therapy; Z90.710 Acquired absence of both cervix and uterus; Z98.890 Other specified postprocedural states
CPT/HCPCS: 36415; 70450; 72131; 80048; 81001; 83735; 85027; 99285; A0425; A0428; 82947; 96374; 97162-GP; 97165-GO; 97530-GO; 97530-GP; 99222; 99231; A9270-GY; J0360; J1644; J7512

== ENCOUNTER 2024-10-26 12:31 | Inpatient (IN) | payer MEDICARE ==
[2024-10-26] MEDS ORDERED: Calcium Carbonate 500 MG Tab.Chew PO PRN (13:17)
[2024-10-26] MEDS: glipiZIDE 2.5 MG Tab.ER PO SCH (17:03)
[2024-10-26] MEDS: Tuberculin, PPD 5 Units/0.1 ML 1 ML MDV IDERM ONE (17:04)
[2024-10-26] MEDS: Sulfamethoxazole/Trimethoprim 800-160 MG Tab PO SCH (19:36)
[2024-10-26] MEDS ORDERED: [UNRECOGNIZED DRUG - OTHER] PO PRN (20:49)
[2024-10-26] MEDS: [UNRECOGNIZED DRUG - OTHER] PO PRN (22:00)
[2024-10-27] MEDS: Levothyroxine 75 MCG Tab PO SCH (07:24)
[2024-10-27] MEDS: Aspirin 81 MG Tab.Chew PO SCH (07:37)
[2024-10-27] MEDS: predniSONE 20 MG Tab PO SCH (07:37)
[2024-10-27] MEDS: Losartan 25 MG Tab PO SCH (07:37)
[2024-10-27] MEDS: Simvastatin 20 MG Tab PO SCH (07:37)
[2024-10-27] MEDS: Acetaminophen 325 MG Tab PO PRN (07:41)
[2024-10-27] MEDS: Lactobacillus Acidophilus/Lactobacillus Sporogenes (Probiotic) Tab PO SCH (07:41)
[2024-10-27] MEDS: Ibuprofen 200 MG Tab PO PRN (07:41)
[2024-10-27] MEDS: Non-Formulary Medication 1 Each (Liraglutide [Victoza] 18 MG/3 ML Pen) SUBCUT SCH (07:42)
[2024-10-27] MEDS ORDERED: Non-Formulary Medication 1 Each (Liraglutide [Victoza] 18 MG/3 ML Pen) SUBCUT SCH (08:00)
[2024-10-27] MEDS: guaiFENesin/Dextromethorphan 100-10 MG/5 ML Soln 10 ML Cup PO PRN (09:35)
[2024-10-27] MEDS: Sennosides/Docusate Sodium 50-8.6 MG Tab PO SCH (21:04)
[2024-10-27] MEDS: Melatonin 3 MG Tab PO SCH (21:05)
[2024-10-28] MEDS: Levothyroxine 75 MCG Tab PO SCH (07:30)
[2024-10-28] MEDS: predniSONE 20 MG Tab PO SCH (07:33)
[2024-10-29] MEDS: Sennosides/Docusate Sodium 50-8.6 MG Tab PO SCH (19:51)
[2024-10-30] MEDS: predniSONE 20 MG Tab PO SCH (08:02)
[2024-11-01] MEDS: predniSONE 5 MG Tab PO SCH (07:10)
[2024-11-03] MEDS: predniSONE 10 MG Tab PO SCH (08:27)
[2024-11-03] MEDS: glipiZIDE 2.5 MG Tab.ER PO ONE (11:15)
[2024-11-04] MEDS: glipiZIDE 2.5 MG Tab.ER PO SCH (07:43)
[2024-11-04] MEDS ORDERED: Sennosides/Docusate Sodium 50-8.6 MG Tab PO PRN (10:00)
[2024-11-05] MEDS: predniSONE 5 MG Tab PO SCH (08:27)
[2024-11-07] MEDS: Polyethylene Glycol 3350 Powder 17 GM Packet PO ONE (09:36)
[2024-11-08 09:57] VITALS: BP 147/61; PULSE 71
== END 2024-11-08 10:40 | DRG 556 ==
LOC: LB.MS 13:16
PROVIDERS: ADMIT Physician Assistant; ATTEND Surgery
DX: M62.81 Muscle weakness (generalized) (principal); E11.9 Type 2 diabetes mellitus without complications; M51.362 Other intervertebral disc degeneration, lumbar region with discogenic back pain and lower extremity pain; Z79.84 Long term (current) use of oral hypoglycemic drugs
CPT/HCPCS: 82947; 86580; 97110-GP; 97116-GP; 97530-GO; 97530-GP; 97535-GO; 99307; 99316; A9270-GY; J7512

== ENCOUNTER 2025-07-16 14:31 | Emergency (ER) | payer MEDICARE ==
[2025-07-16 14:51] VITALS: PULSE 73
[2025-07-16 15:41] VITALS: BP 180/77
== END 2025-07-16 15:25 ==
LOC: LB.ED 14:31
DX: S42.295A Other nondisplaced fracture of upper end of left humerus, initial encounter for closed fracture (principal); I10 Essential (primary) hypertension; E78.00 Pure hypercholesterolemia, unspecified; E11.9 Type 2 diabetes mellitus without complications; E03.9 Hypothyroidism, unspecified; M19.90 Unspecified osteoarthritis, unspecified site; Z79.899 Other long term (current) drug therapy; Z79.890 Hormone replacement therapy; Z88.8 Allergy status to other drugs, medicaments and biological substances; Z90.49 Acquired absence of other specified parts of digestive tract; Z90.710 Acquired absence of both cervix and uterus; Z68.27 Body mass index [BMI] 27.0-27.9, adult; W19.XXXA Unspecified fall, initial encounter
CPT/HCPCS: 73030-LT; 99283; A9270-GY

== ENCOUNTER 2025-07-20 13:42 | Emergency (ER) | payer MEDICARE ==
[2025-07-20 14:42] LABS: MEAN PLATELET VOLUME 10.0 fL (6.0-10.0); PLATELET COUNT,PLT 262 K/uL (150-500); RED BLOOD CELL COUNT 5.68 M/uL (3.80-5.80); RED CELL DISTRIBUTION WIDTH 13.2 % (11.0-16.0)
[2025-07-20 14:51] LABS: WHITE BLOOD CELL COUNT,WBC 35.1 K/uL (4.0-11.0)
[2025-07-20] MEDS ORDERED: Sodium Chloride 0.9% 10 ML Syringe FLUSH PRN (15:04)
[2025-07-20 15:16] LABS: A/G RATIO 1.0 (0.8-2.0); ALANINE AMINOTRANSFERASE,ALT 52.0 U/L (12-78); ASPARTATE AMNIOTRANSFERASE,AST 21.0 U/L (15-37); BILIRUBIN TOTAL 1.1 mg/dL (0.0-1.0); BLOOD UREA NITROGEN,BUN 31.0 mg/dL (8-26); CARBON DIOXIDE,CO2 24.2 mmol/L (21.0-32.0); CHLORIDE,CL 93.0 mmol/L (98-107); CREATININE 1.1 mg/dL (0.55-1.02); EST CRCL DRUG DOSING (CG) 30.37 mL/min; ESTIMATED GFR 49.0 mL/min (>60); GLUCOSE RANDOM 322.0 mg/dL (74-100); POTASSIUM,K 4.1 mmol/L (3.5-5.1); PROTEIN TOTAL,TP 8.0 g/dL (6.4-8.2); SODIUM,NA 124.0 mmol/L (136-145)
[2025-07-20] MEDS: metroNIDAZOLE/Normal Saline 500 MG in Premix Bag 1 BAG IV ONE (15:18)
[2025-07-20] MEDS: Labetalol 100 MG/20 ML MDV IVPUSH ONE (15:29)
[2025-07-20 15:47] LABS: BAND PERCENT MAN 2.0 %
[2025-07-20 15:48] LABS: LYMPHOCYTES PERCENT MAN 5.0 % (20.0-40.0); MONOCYTES PERCENT MAN 9.0 % (3.0-10.0)
[2025-07-20 15:49] LABS: SEG NEUTROPHILS PERCENT MAN 84.0 % (45.0-70.0)
[2025-07-20 15:50] LABS: PLATELET COUNT ESTIMATE ADEQUATE; PLATELET SATELLITOSIS FEW
[2025-07-20] MEDS: Labetalol 100 MG in Sodium Chloride 0.9% 100 ML IV SCH (16:20)
[2025-07-20] MEDS: Labetalol 100 MG/20 ML MDV ONE (16:21)
[2025-07-20] MEDS ORDERED: Sennosides/Docusate Sodium 50-8.6 MG Tab PO PRN (16:50)
[2025-07-20] MEDS ORDERED: Non-Formulary Medication 1 Each (Tirzepatide [Mounjaro] 2.5 MG/0.5 ML Pen.Injctr) SUBCUT SCH (17:00)
[2025-07-20 17:28] LABS: APPEARANCE,URINE TURBID (CLEAR); GLUCOSE,URINE 500 mg/dL (NEGATIVE); OCCULT BLOOD,URINE MODERATE (NEGATIVE)
[2025-07-20 18:46] VITALS: BP 174/62; PULSE 70
[2025-07-20] MEDS ORDERED: Trolamine Salicylate/Aloe Vera 10% Crm 85 GM Tube TOP SCH (20:00)
[2025-07-21] MEDS ORDERED: glipiZIDE 2.5 MG Tab.ER PO SCH (08:00)
[2025-07-21] MEDS ORDERED: Lactobacillus Acidophilus/Lactobacillus Sporogenes (Probiotic) Tab PO SCH (08:00)
== END 2025-07-20 18:34 ==
LOC: LB.ED 13:42 → LB.MS 16:49 → UNDOADMIN 16:49 → LB.MS 16:50 → LB.ED 18:34
DX: A41.9 Sepsis, unspecified organism (principal); R65.20 Severe sepsis without septic shock; N17.9 Acute kidney failure, unspecified; K52.9 Noninfective gastroenteritis and colitis, unspecified; I10 Essential (primary) hypertension; E78.00 Pure hypercholesterolemia, unspecified; E11.9 Type 2 diabetes mellitus without complications; E03.9 Hypothyroidism, unspecified; M19.90 Unspecified osteoarthritis, unspecified site; Z79.899 Other long term (current) drug therapy; Z79.890 Hormone replacement therapy; Z88.8 Allergy status to other drugs, medicaments and biological substances; Z90.49 Acquired absence of other specified parts of digestive tract; Z90.710 Acquired absence of both cervix and uterus
CPT/HCPCS: 36415; 71250; 74176; 80053; 81001; 83605; 84145; 85014; 85018; 85025; 86140; 87040; 87045; 87046; 87427; 96365; 96367; 96368; 96376; 99284; 99285-25; A9270-GY; J1836; J1920; J2543; J7030

== ENCOUNTER 2025-07-26 13:35 | Inpatient (IN) | payer MEDICARE ==
[2025-07-26] MEDS ORDERED: Ondansetron 4 MG Tab.DIS PO PRN (15:22)
[2025-07-26] MEDS ORDERED: Trolamine Salicylate/Aloe Vera 10% Crm 85 GM Tube TOP PRN (15:26)
[2025-07-26] MEDS: Tuberculin, PPD 5 Units/0.1 ML 1 ML MDV IDERM ONE (19:45)
[2025-07-26] MEDS: Amoxicillin/Clavulanate K 875-125 MG Tab PO SCH (19:48)
[2025-07-27] MEDS: glipiZIDE 2.5 MG Tab.ER PO SCH (09:11)
[2025-07-27] MEDS: Fish Oil/Omega-3 Fatty Acids 1 Gm Cap PO SCH (09:11)
[2025-07-27] MEDS: Lactobacillus Acidophilus/Lactobacillus Sporogenes (Probiotic) Tab PO SCH (11:38)
[2025-07-27] MEDS: TIRZEPATIDE 2.5 MG/0.5 ML SUBCUT SCH (17:51)
[2025-08-01 07:53] LABS: BASOPHILS ABSOLUTE AUTO 0.04 K/uL (0.02-0.10); BASOPHILS PERCENT AUTO 0.5 % (0.0-0.5); EOSINOPHILS ABSOLUTE AUTO 0.10 K/uL (0.04-0.40); EOSINOPHILS PERCENT AUTO 1.3 % (1.0-5.0); LYMPHOCYTES ABSOLUTE AUTO 1.49 K/uL (1.50-4.00); LYMPHOCYTES PERCENT AUTO 19.8 % (20.0-40.0); MEAN PLATELET VOLUME 9.3 fL (6.0-10.0); MONOCYTES ABSOLUTE AUTO 0.52 K/uL (0.20-0.80); MONOCYTES PERCENT AUTO 6.9 % (3.0-10.0); NEUTROPHILS ABSOLUTE AUTO 5.38 K/uL (2.00-7.50); NEUTROPHILS PERCENT AUTO 71.5 % (45.0-70.0); PLATELET COUNT,PLT 265 K/uL (150-500); RED BLOOD CELL COUNT 3.92 M/uL (3.80-5.80); RED CELL DISTRIBUTION WIDTH 13.0 % (11.0-16.0); WHITE BLOOD CELL COUNT,WBC 7.5 K/uL (4.0-11.0)
[2025-08-01 08:07] LABS: BLOOD UREA NITROGEN,BUN 12.0 mg/dL (8-26); CARBON DIOXIDE,CO2 28.9 mmol/L (21.0-32.0); CHLORIDE,CL 106.0 mmol/L (98-107); CREATININE 0.74 mg/dL (0.55-1.02); EST CRCL DRUG DOSING (CG) 45.14 mL/min; ESTIMATED GFR 79.0 mL/min (>60); GLUCOSE RANDOM 129.0 mg/dL (74-100); POTASSIUM,K 4.0 mmol/L (3.5-5.1); SODIUM,NA 144.0 mmol/L (136-145)
[2025-08-04 08:35] VITALS: PULSE 59
[2025-08-04] MEDS: FLU (Fluad Triv) 25-26 (65UP)/MF59C/PF 45 MCG/0.5 ML Syringe IM ONE (17:11)
[2025-08-05 07:46] VITALS: BP 157/55
== END 2025-08-05 10:55 | DRG 948 ==
LOC: LB.MS 16:11
PROVIDERS: ADMIT Nurse Practitioner Family; ATTEND Nurse Practitioner Family
DX: R53.81 Other malaise (principal); I10 Essential (primary) hypertension; E03.9 Hypothyroidism, unspecified; E11.22 Type 2 diabetes mellitus with diabetic chronic kidney disease; H54.7 Unspecified visual loss; E78.00 Pure hypercholesterolemia, unspecified; M19.90 Unspecified osteoarthritis, unspecified site; F32.A Depression, unspecified; Z90.49 Acquired absence of other specified parts of digestive tract; Z90.710 Acquired absence of both cervix and uterus; Z90.722 Acquired absence of ovaries, bilateral; Z79.82 Long term (current) use of aspirin; Z79.890 Hormone replacement therapy; Z79.84 Long term (current) use of oral hypoglycemic drugs; Z79.1 Long term (current) use of non-steroidal anti-inflammatories (NSAID); Z79.899 Other long term (current) drug therapy; Z98.890 Other specified postprocedural states
CPT/HCPCS: 36415; 80048; 82947; 85025; 86580; 90653; 97110-GO; 97110-GP; 97161-GP; 97165-GO; 97530-GO; 97530-GP; 99305; 99308; 99315; A9270-GY; G0008